=== PATIENT | female | born 1985 | race Caucasian/White ===

== ENCOUNTER 2016-11-29 11:56 | Emergency (ER) | payer OTHER ==
[~2016-11-29] VITALS: Ht 175.3 cm; Wt 66.0 kg
[~2016-11-29 11:56] MED LIST: IBUP800T23 PO; LORTA5 PO
[2016-11-29 11:58] VITALS: BP 152/82; PULSE 80; RESP 20; TEMP 98.4; O2SAT 99
--- NOTE | 2016-11-29 12:07 | PD ---
Physical Exam Date Seen by Provider: November 29, 2016 Time Seen by Provider: 12:06 Narrative Patient reports flu-like symptoms consisting of sore throat, headache, sneezing , coughing for 3 days. Patient's was diagnosed with the flu recently with similar symptoms. Vital signs reviewed. Patient seen in triage, awaiting bed placement. Data Data Last Documented VS Vital Signs Date Time Temp Pulse Resp B/P Pulse Ox O2 Delivery O2 Flow Rate FiO2 11/29/16 11:58 98.4 80 20 152/82 99 Room Air [facility] [place] Supervised Visit with IQRA: Shannon Mckeon November 29, 2016 12:07
[2016-11-29] MEDS ORDERED: ASPI325T PO (12:15)
[2016-11-29] MEDS ORDERED: WELLTAB39 PO (12:15)
--- NOTE | 2016-11-29 12:27 | PD ---
HPI Chief Complaint: Cold / Flu Symptoms Time Seen by Provider: 12:23 Travel History International Travel<30 days: No Contact w/Intl Traveler<30days: No Traveled to known affect area: No History of Present Illness HPI 31-year-old female with history of platelet dysfunction, presents to the ER today because she states that she has had several days' history of nasal congestion, coughing, sore throat, coughing up small amount of blood, small amounts of blood in her nasal discharge, and nausea, vomiting. She states that her has had similar symptoms and had been diagnosed with the flu. She denies any fevers, abdominal pains, chest pains, shortness of breath, or any other symptoms. Modifying Factors: None Associated Signs & Symptoms: Cough, cold symptoms, sore throat, coughing up small amounts of blood, nausea, vomiting Risk Factors: Sick contact, thrombocytopenia PFSH Past Medical History Cancer: Yes Cardiovascular Problems: Yes (HTN) High Cholesterol: Yes Diabetes: No Diminished Hearing: No Endocrine: No Gastrointestinal Disorders: Yes (reflux) Genitourinary: No Hepatitis: No Hiatal Hernia: No Hypertension: Yes Immune Disorder: No Musculoskeletal: No Neurologic: No Psychiatric: No Reproductive: Yes (endometriosis) Respiratory: No Immunizations Current: No Thyroid Disease: No ?: Not LMP: 11/27/2016 : 3 Para: 1 Miscarriage: 1 : 0 Ovarian Cysts: Yes (left ovary) Past Surgical History Abdominal Surgery: Yes (endometriosis) AICD: No Gynecologic Surgery: Yes (cyst removed from left ovary) Joint Replacement: No Pacemaker: No Other Surgery: Yes (bone marrow biopsy) Social History Alcohol Use: No Tobacco Use: No Substance Use: No Allergies-Medications (Allergen,Severity, Reaction): Coded Allergies: Augmentin (Verified Allergy, Severe, Rash, 11/29/16) Reported Meds & Prescriptions Reported Meds & Active Scripts Active Reported Wellbutrin Xl 24 HR (Bupropion HCl) 300 Mg Tab 300 Mg PO DAILY Aspirin 325 Mg Tab 325 Mg PO DAILY Review of Systems Except as stated in HPI: all other systems reviewed are Neg Physical Exam Narrative GENERAL: Young white female patient who is well-developed, awake, alert, 0.23. In mild distress. SKIN: Focused skin assessment warm/dry. HEAD: Atraumatic. Normocephalic. EYES: Pupils equal and round. No scleral icterus. No injection or drainage. ENT: No nasal bleeding or discharge. Mucous membranes pink and moist. No significant pharyngeal erythema or exudates. Tonsillar pillars are symmetrical. NECK: Trachea midline. No JVD. CARDIOVASCULAR: Regular rate and rhythm. No murmur appreciated. RESPIRATORY: No accessory muscle use. Clear to auscultation. Breath sounds equal bilaterally. GASTROINTESTINAL: Abdomen soft, non-tender, nondistended. Hepatic and splenic margins not palpable. MUSCULOSKELETAL: No obvious deformities. No clubbing. No cyanosis. No edema. NEUROLOGICAL: Awake and alert. No obvious cranial nerve deficits. Motor grossly within normal limits. Normal speech. PSYCHIATRIC: Appropriate mood and affect; insight and judgment normal. Data Data Last Documented VS Vital Signs Date Time Temp Pulse Resp B/P Pulse Ox O2 Delivery O2 Flow Rate FiO2 11/29/16 11:58 98.4 80 20 152/82 99 Room Air Orders Influenzae A/B Antigen (11/29/16 12:18) Complete Blood Count With Diff (11/29/16 12:23) Prothrombin Time / Inr (Pt) (11/29/16 12:23) Act Partial Throm Time (Ptt) (11/29/16 12:23) Chest, Single Ap (11/29/16 12:23) Ed Urine Pregnancytest Poc (11/29/16 12:23) Labs Laboratory Tests Test 11/29/16 12:28 White Blood Count 8.8 TH/MM3 Red Blood Count 4.56 MIL/MM3 Hemoglobin 13.0 GM/DL Hematocrit 37.4 % Mean Corpuscular Volume 82.2 FL Mean Corpuscular Hemoglobin 28.6 PG Mean Corpuscular Hemoglobin 34.8 % Concent Red Cell Distribution Width 13.2 % Platelet Count 642 TH/MM3 Mean Platelet Volume 8.3 FL Neutrophils (%) (Auto) 73.3 % Lymphocytes (%) (Auto) 18.9 % Monocytes (%) (Auto) 6.6 % Eosinophils (%) (Auto) 0.7 % Basophils (%) (Auto) 0.5 % Neutrophils # (Auto) 6.4 TH/MM3 Lymphocytes # (Auto) 1.7 TH/MM3 Monocytes # (Auto) 0.6 TH/MM3 Eosinophils # (Auto) 0.1 TH/MM3 Basophils # (Auto) 0.0 TH/MM3 CBC Comment DIFF FINAL Differential Comment Prothrombin Time 10.3 SEC Prothromb Time International 0.9 RATIO Ratio Activated Partial 28.5 SEC Thromboplast Time MDM Medical Decision Making Medical Screen Exam Complete: Yes Emergency Medical Condition: Yes Medical Record Reviewed: Yes Interpretation(s) Last 24 hours Impressions Chest X-Ray 11/29/16 1223 Signed Impressions: Service Date/Time: Tuesday, November 29, 2016 12:37 - CONCLUSION: No acute disease. There is no evidence of pneumonia. Gama Mckeon MD Laboratory Tests Test 11/29/16 12:28 Platelet Count 642 TH/MM3 (150-450) Neutrophils (%) (Auto) 73.3 % (16.0-70.0) Differential Diagnosis Cough, cold symptoms, small amounts of blood in sputum and nasal discharge worsening thrombocytopenia versus influenza versus pneumonia Narrative Course Influenza test is negative. Chest x-ray did not show any signs of acute pulmonary processes. Lab work shows an elevated platelet count. Patient has no active bleeding currently. At this point, symptoms are more indicative of viral syndrome. My plan would be to release the patient would follow-up to primary care physician. Return for new issues as needed. The plan has been discussed with the patient and she states understanding. Diagnosis Primary Impression: Viral syndrome Med/Other Pt SpecificInfo: Prescription(s) given Disposition: 01 DISCHARGE HOME Condition: Stable Em Morris MD November 29, 2016 12:27 Em Morris MD November 29, 2016 12:27
[2016-11-29 12:44] LABS: AUTOMATED NEUTROPHIL # 6.4 TH/MM3 (1.8-7.7); BASOPHIL % 0.5 % (0.0-2.0); EOSINOPHIL # 0.1 TH/MM3 (0-0.4); EOSINOPHIL % 0.7 % (0.0-4.0); HEMATOCRIT 37.4 % (35.0-46.0); HEMO FLAGS DIFF FINAL; LYMPH % 18.9 % (9.0-44.0); LYMPHOCYTE # 1.7 TH/MM3 (1.0-4.8); MEAN CELL VOLUME 82.2 FL (80.0-100.0); MEAN CORPUSCULAR HEMOGLOBIN 28.6 PG (27.0-34.0); MEAN CORPUSCULAR HGB CONC 34.8 % (32.0-36.0); MONO % 6.6 % (0.0-8.0); NEUT % 73.3 % (16.0-70.0); PLATELET COUNT 642 TH/MM3 (150-450); RED BLOOD COUNT 4.56 MIL/MM3 (4.00-5.30); RED CELL DISTRIBUTION WIDTH 13.2 % (11.6-17.2); WHITE BLOOD COUNT 8.8 TH/MM3 (4.0-11.0)
[2016-11-29 12:53] LABS: APTT (PATIENT) 28.5 SEC (24.3-30.1); INTERNATIONAL NORMALIZED RATIO 0.9 RATIO; PROTHROMBIN TIME - PATIENT 10.3 SEC (9.8-11.6)
--- NOTE | 2016-11-29 12:55 | RADRPT ---
EXAM DATE/TIME: 11/29/2016 12:37 [facility] COMPARISON: No previous studies available for comparison. INDICATIONS : Shortness of breath, cough, and congestion. MEDICAL HISTORY : Hypertension. Hypercholesterolemia. GERD. SURGICAL HISTORY : None. ENCOUNTER: Initial ACUITY: 3 days PAIN SCORE: 0/10 LOCATION: Bilateral chest FINDINGS: A single view of the chest demonstrates the lungs to be symmetrically aerated without evidence of mas s, infiltrate or effusion. The cardiomediastinal contours are unremarkable. Osseous structures are intact. CONCLUSION: No acute disease. There is no evidence of pneumonia. Gama Mckeon MD on November 29, 2016 at 12:52 Board Certified Radiologist. This report was verified electronically.
== END 2016-11-29 13:30 | disposition home or self-care (01) ==
LOC: NEPD 11:56
DX: B34.9 Viral infection, unspecified (principal); I10 Essential (primary) hypertension; R06.02 Shortness of breath
CPT/HCPCS: 71010; 84703; 85025; 85610; 85730; 87804; 99284

== ENCOUNTER 2017-05-09 08:58 | Emergency (ER) | payer OTHER ==
[~2017-05-09] VITALS: Ht 165.1 cm; Wt 65.0 kg
[~2017-05-09 08:58] MED LIST changes: +ASPI325T PO; -IBUP800T23 PO; -LORTA5 PO; +WELLTAB39 PO
[2017-05-09 09:00] VITALS: BP 128/74; PULSE 78; RESP 16; TEMP 98.2; O2SAT 100
[2017-05-09 09:01] VITALS: BP 163/87; PULSE 84; RESP 15; TEMP 97.8; O2SAT 98
[2017-05-09] MEDS ORDERED: diphenhydrAMINE HCL 50 MG/ML VIAL IV PUSH ONE (09:30)
[2017-05-09] MEDS ORDERED: METOCLOPRAMIDE HCL 10 MG/2 ML VIAL IV PUSH ONE (09:30)
[2017-05-09] MEDS ORDERED: SODIUM CHLORIDE 0.9% FLUSH 10 ML FLUSH IV FLUSH PRN (09:30)
[2017-05-09 09:44] VITALS: O2SAT 100
[2017-05-09 09:48] LABS: AUTOMATED NEUTROPHIL # 10.1 TH/MM3 (1.8-7.7); BASOPHIL % 0.2 % (0.0-2.0); EOSINOPHIL # 0.1 TH/MM3 (0-0.4); EOSINOPHIL % 0.9 % (0.0-4.0); HEMATOCRIT 36.1 % (35.0-46.0); HEMO FLAGS DIFF FINAL; LYMPH % 11.1 % (9.0-44.0); LYMPHOCYTE # 1.3 TH/MM3 (1.0-4.8); MEAN CELL VOLUME 84.4 FL (80.0-100.0); MEAN CORPUSCULAR HEMOGLOBIN 28.2 PG (27.0-34.0); MEAN CORPUSCULAR HGB CONC 33.5 % (32.0-36.0); MONO % 3.1 % (0.0-8.0); NEUT % 84.7 % (16.0-70.0); PLATELET COUNT 481 TH/MM3 (150-450); RED BLOOD COUNT 4.28 MIL/MM3 (4.00-5.30); RED CELL DISTRIBUTION WIDTH 13.3 % (11.6-17.2); WHITE BLOOD COUNT 11.9 TH/MM3 (4.0-11.0)
[2017-05-09 09:49] LABS: BLOOD, URINE NEG (NEG); COMMENT (UR) CULT NOT INDICATED; CULTURE IF INDICATED CULT NOT INDICATED; GLUCOSE,URINE NEG (NEG); KETONE, URINE NEG (NEG); MUCUS URINE FEW /lpf (OCC); NITRITE,URINE NEG (NEG); SQUAMOUS EPITHELIAL CELL URINE <1 /hpf (0-5); URINE COLOR YELLOW (YELLW/STRAW)
[2017-05-09 10:08] LABS: ANION GAP 7 MEQ/L (5-15); AST (GOT) 13 U/L (15-37); BICARBONATE 24.2 MEQ/L (21.0-32.0); BLOOD UREA NITROGEN 7 MG/DL (7-18); CHLORIDE 105 MEQ/L (98-107); GLOMERULAR FILTRATION RATE 135 ML/MIN (>89); SODIUM (NA) 136 MEQ/L (136-145)
[2017-05-09 10:09] LABS: ALT (GPT) 21 U/L (10-53)
[2017-05-09 10:26] LABS: ALKALINE PHOSPHATASE 60 U/L (45-117); BETA HCG QUANT 65344 MIU/ML (0-5); TOTAL BILIRUBIN ADULT 0.3 MG/DL (0.2-1.0)
[2017-05-09] MEDS ORDERED: REGL10TA5 PO (10:33)
--- NOTE | 2017-05-09 10:33 | PD ---
HPI Chief Complaint: Related Problem Time Seen by Provider: 09:14 Travel History International Travel<30 days: No Contact w/Intl Traveler<30days: No Traveled to known affect area: No History of Present Illness HPI 31-year-old female 5 para one noted to be 13 weeks complains of headache for 1 day generalized frontal scalp and his location. Tylenol has not been helpful. She also complains of generalized and suprapubic abdominal pain. She has had a normal ultrasound with a sub arc operator in [place]. It was 2 weeks ago. No abnormal vaginal discharge or bleed. Decreased appetite reported. No fever. She also reports vomiting this morning. Intermittent nausea reported. PFSH Past Medical History Cancer: Yes Cardiovascular Problems: Yes (HTN) High Cholesterol: Yes Diabetes: No Diminished Hearing: No Endocrine: No Gastrointestinal Disorders: Yes (reflux) Genitourinary: No Hepatitis: No Hiatal Hernia: No Hypertension: Yes Immune Disorder: No Musculoskeletal: No Neurologic: No Psychiatric: No Reproductive: Yes (endometriosis) Respiratory: No Immunizations Current: No Thyroid Disease: No ?: : 3 Para: 1 Miscarriage: 1 : 0 Ovarian Cysts: Yes (left ovary) Past Surgical History Abdominal Surgery: Yes (endometriosis) AICD: No Gynecologic Surgery: Yes (cyst removed from left ovary) Joint Replacement: No Pacemaker: No Other Surgery: Yes (bone marrow biopsy) Social History Alcohol Use: No Tobacco Use: No Substance Use: No Allergies-Medications (Allergen,Severity, Reaction): Coded Allergies: amoxicillin (Unverified Allergy, Severe, Rash, 03/10/17) clavulanic acid (Unverified Allergy, Severe, Rash, 03/10/17) Reported Meds & Prescriptions Reported Meds & Active Scripts Active Reglan (Metoclopramide HCl) 10 Mg Tab 10 Mg PO TID PRN Reported Wellbutrin Xl 24 HR (Bupropion HCl) 300 Mg Tab 300 Mg PO DAILY Aspirin 325 Mg Tab 325 Mg PO DAILY Review of Systems Except as stated in HPI: all other systems reviewed are Neg General / Constitutional: No: Fever Physical Exam Narrative GENERAL: 31-year-old female acute distress SKIN: Warm and dry. HEAD: Atraumatic. Normocephalic. EYES: Pupils equal and round. No scleral icterus. No injection or drainage. ENT: No nasal bleeding or discharge. Mucous membranes pink and moist. NECK: Trachea midline. No JVD. CARDIOVASCULAR: Regular rate and rhythm. RESPIRATORY: No accessory muscle use. Clear to auscultation. Breath sounds equal bilaterally. GASTROINTESTINAL: Soft. No focused tenderness. No flank tenderness. MUSCULOSKELETAL: Extremities without clubbing, cyanosis, or edema. No obvious deformities. NEUROLOGICAL: Awake and alert. No obvious cranial nerve deficits. Motor grossly within normal limits. Five out of 5 muscle strength in the arms and legs. Normal speech. PSYCHIATRIC: Appropriate mood and affect; insight and judgment normal. Data Data Last Documented VS Vital Signs Date Time Temp Pulse Resp B/P (MAP) Pulse Ox O2 Delivery O2 Flow Rate FiO2 05/09/17 09:44 100 Room Air 05/09/17 09:01 97.8 84 15 Vital signs reviewed blood pressure is 163/87 Orders Orders Beta Hcg (Quant/Titer) (05/09/17 09:22) Complete Blood Count With Diff (05/09/17 09:22) Comprehensive Metabolic Panel (05/09/17:22) Lipase (05/09/17:22) Urinalysis - C+S If Indicated (05/09/17 09:22) Iv Access Insert/Monitor (05/09/17 09:22) Ecg Monitoring (05/09/17:22) Oximetry (05/09/17 09:22) Sodium Chloride 0.9% Flush (Ns Flush) (05/09/17 09:30) Metoclopramide Inj (Reglan Inj) (05/09/17 09:30) Diphenhydramine Inj (Benadryl Inj) (05/09/17 09:30) Ed Discharge Order (05/09/17 10:33) Labs Laboratory Tests Test 05/09/17 09:40 White Blood Count 11.9 TH/MM3 Red Blood Count 4.28 MIL/MM3 Hemoglobin 12.1 GM/DL Hematocrit 36.1 % Mean Corpuscular Volume 84.4 FL Mean Corpuscular Hemoglobin 28.2 PG Mean Corpuscular Hemoglobin Concent 33.5 % Red Cell Distribution Width 13.3 % Platelet Count 481 TH/MM3 Mean Platelet Volume 8.2 FL Neutrophils (%) (Auto) 84.7 % Lymphocytes (%) (Auto) 11.1 % Monocytes (%) (Auto) 3.1 % Eosinophils (%) (Auto) 0.9 % Basophils (%) (Auto) 0.2 % Neutrophils # (Auto) 10.1 TH/MM3 Lymphocytes # (Auto) 1.3 TH/MM3 Monocytes # (Auto) 0.4 TH/MM3 Eosinophils # (Auto) 0.1 TH/MM3 Basophils # (Auto) 0.0 TH/MM3 CBC Comment DIFF FINAL Differential Comment Urine Color YELLOW Urine Turbidity CLEAR Urine pH 6.0 Urine Specific [place] 1.018 Urine Protein NEG mg/dL Urine Glucose (UA) NEG mg/dL Urine Ketones NEG mg/dL Urine Occult Blood NEG Urine Nitrite NEG Urine Bilirubin NEG Urine Urobilinogen LESS THAN 2.0 MG/DL Urine Leukocyte Esterase NEG Urine RBC LESS THAN 1 /hpf Urine WBC 1 /hpf Urine Squamous Epithelial Cells <1 /hpf Urine Mucus FEW /lpf Microscopic Urinalysis Comment CULT NOT INDICATED Blood Urea Nitrogen 7 MG/DL Creatinine 0.53 MG/DL Random Glucose 85 MG/DL Total Protein 6.7 GM/DL Albumin 3.0 GM/DL Calcium Level 9.2 MG/DL Alkaline Phosphatase 60 U/L Aspartate Amino Transf (AST/SGOT) 13 U/L Alanine Aminotransferase (ALT/SGPT) 21 U/L Total Bilirubin 0.3 MG/DL Sodium Level 136 MEQ/L Potassium Level 4.0 MEQ/L Chloride Level 105 MEQ/L Carbon Dioxide Level 24.2 MEQ/L Anion Gap 7 MEQ/L Estimat Glomerular Filtration Rate 135 ML/MIN Lipase 139 U/L Human Chorionic Gonadotropin, Quant 22550 MIU/ML MDM Medical Decision Making Medical Screen Exam Complete: Yes Emergency Medical Condition: Yes Medical Record Reviewed: Yes Differential Diagnosis Migraine, UTI, intrauterine , round ligament pain, electronimbalance, hepatobiliary disease, pancreatitis, venous sinus thrombosis Narrative Course CBC & BMP Diagram 05/09/17 09:40 Total Protein 6.7, Albumin 3.0 L, Calcium Level 9.2, Alkaline Phosphatase 60, Aspartate Amino Transf (AST/SGOT) 13 L, Alanine Aminotransferase (ALT/SGPT) 21, Total Bilirubin 0.3 HCG 65,344 UA: no UTI The patient is resting comfortably and feels better, is alert and in no distress. The patients results and examination findings were discussed. The repeat examination is unremarkable and benign. The history, exam, diagnostic testing, and current condition do not suggest any significant pathology to warrant further testing, continued ED treatment, admission, or surgical evaluation at this point. The vital signs have been stable. The patient does not have uncontrollable pain, intractable vomiting, or other significant symptoms. The patient's condition is stable and appropriate for discharge. The patient will pursue further outpatient evaluation with a primary care physician or other designated or consulting physician as indicated in the discharge instructions. The patient expressed understanding and was agreeable with this plan. Diagnosis Primary Impression: Cephalgia Qualified Codes: R51 - Headache Additional Impressions: Abdominal pain Qualified Codes: R10.9 - Unspecified abdominal pain Intrauterine Referrals: [facility] 2 days Additional Instructions: You have a choice when it comes to health care, and we are glad that you chose [facility]. Hopefully, we have met your expectations on today's visit. You are welcome to return to [facility] at any time, as we are committed to meeting the health care needs of our community. Med/Other Pt SpecificInfo: Prescription(s) given Scripts Metoclopramide (Reglan) 10 Mg Tab 10 MG PO TID Y for NAUSEA OR VOMITING, #10 TAB 0 Refills Prov: Josh Swartz MD 05/09/17 Disposition: DISCHARGE HOME Condition: Stable Josh Swartz MD May 09, 2017 10:33
== END 2017-05-09 11:04 | disposition home or self-care (01) ==
LOC: NEPD 08:58
DX: O26.91 Pregnancy related conditions, unspecified, first trimester (principal); Z3A.13 13 weeks gestation of pregnancy; O16.1 Unspecified maternal hypertension, first trimester; K21.9 Gastro-esophageal reflux disease without esophagitis; E78.5 Hyperlipidemia, unspecified; O34.81 Maternal care for other abnormalities of pelvic organs, first trimester; N83.202 Unspecified ovarian cyst, left side
CPT/HCPCS: 80053; 81001; 83690; 84702; 85025; 96374; 96375; 99284; J1200; J2765

== ENCOUNTER → 2017-06-24 | Outpatient (CLI) | payer OTHER ==
[~2017-06-24] MED LIST changes: +ASPI-183 PO; -ASPI325T PO; +REGL10TA5 PO
== END ==
LOC: HPND 08:58
DX: O99.112 Other diseases of the blood and blood-forming organs and certain disorders involving the immune mechanism complicating pregnancy, second trimester (principal); D69.6 Thrombocytopenia, unspecified
CPT/HCPCS: 76811

== ENCOUNTER 2017-07-08 17:50 | Emergency (ER) | payer OTHER ==
--- NOTE | 2017-07-08 18:50 | PD ---
HPI Chief Complaint Lower abdominal pain, back pain Travel History International Travel<30 Days: No Contact w/Intl Traveler<30Days: No Known Affected Area: No History of Present Illness HPI 31-year-old 031, IUP at 20.3 care complicated by hypertension on labetalol daily but she doesn't recall the dose The patient presents complaining of the headache that she has had all day today. She reports that she has had headache off and on over the past 3 days. She reports that will occasionally improve with Tylenol but then returns. There are no other aggravating or alleviating factors. She also reports intermittent abdominal pain today that his occurred 3-4 times, lasting for 5-10 minutes each episode, and is sharp and stabbing in nature. She reports the pain as 7 out of 10. There are no aggravating or relieving factors, no attempted treatments. She denies any nausea, vomiting, fever, chills. She is tolerating a regular diet. She denies any leaking of fluid or vaginal bleeding. She reports good movement. She denies any uterine cramping. Weeks Gestation: 20 Para: 1 : 5 History Past Medical History Narrative Medical HTN Obstetric History Obstetric History 031 1 SAB 3 Past Surgical History Surgical History: No Previous Surgery Family History Narrative Family History DM, HTN, CAD, ID Social History Alcohol Use: No Tobacco Use: No Substance Abuse: No Allergies-Medications (Allergen,Severity, Reaction): Coded Allergies: amoxicillin (Unverified Allergy, Severe, Rash, 03/10/17) clavulanic acid (Unverified Allergy, Severe, Rash, 03/10/17) Home Meds Active Scripts Metoclopramide (Reglan) 10 Mg Tab, 10 MG PO TID Y for NAUSEA OR VOMITING, #10 TAB 0 Refills Prov:Josh Swartz MD 05/09/17 Reported Medications Bupropion HCl ER 24 HR (Wellbutrin Xl 24 HR) 300 Mg Tab, 300 MG PO DAILY for Control Depression, TAB 0 Refills 11/29/16 Aspirin (Aspirin) 325 Mg Tab, 325 MG PO DAILY, #30 TAB 0 Refills 11/29/16 Review of Systems Except as stated in HPI: all other systems reviewed are Neg HENT: Headaches Physical Exam Narrative GENERAL: Well-nourished, well-developed patient. SKIN: Warm and dry. HEAD: Normocephalic and atraumatic. EYES: No scleral icterus. No injection or drainage. ENT: No nasal drainage noted. Mucous membranes pink. Airway patent. NECK: Supple, trachea midline. No JVD. CARDIOVASCULAR: Regular rate and rhythm without murmurs, gallops, or rubs. RESPIRATORY: Breath sounds equal bilaterally. No accessory muscle use. BREASTS: Bilateral exam showed no masses , no retractions, no nipple discharge. ABDOMEN/GI: Abdomen soft, non-tender, bowel sounds present, no rebound, no guarding Gravid GENITOURINARY: External Genitalia: intact and normal in appearance BUS glands: [-] Cervix: [-] Dilatation: [-] Effacement: [-] Station: [-] Presentation: [-] Membranes: [intact or ruptured] Uterine Contractions: [-] FHT's: Doppler heart tones in the 160s EXTREMITIES: No cyanosis or edema. BACK: Nontender without obvious deformity. No CVA tenderness. No spinal or paraspinal tenderness. Mild lower lumbar musculoskeletal tenderness with palpation NEUROLOGICAL: Awake and alert. Motor and sensory grossly within normal limits. Five out of 5 muscle strength in all muscle groups. Normal speech. Psychiatric: Grossly normal memory and affect Musculoskeletal: Grossly normal range of motion, gait, muscle strength MDM Plan Assessment/plan: 1. IUP at 20.3 2. Abdominal pain: No evidence of labor with cervix that is closed/ thick/high and posterior. No contractions noted on tocometry. The patient has a benign abdominal exam. She declines transferred to the ED. The patient was instructed we would transfer her to the ED for further evaluation due to 7 out of 10 pain although the patient appears to be resting comfortably in bed. The patient refused to be transferred to the ED. 3. Chronic hypertension: Patient brought she is not been taking her medication but has normal blood pressures today. Advised her to follow up with her primary obstetrical provider 4. Headache : The patient is normal blood pressures, she was given Fioricet 2 and reports that her headache resolved 5. Follow-up with primary OB in 2-3 days or sooner if needed patient given information on local providers Diagnosis Diagnosis: Primary Impression: 20 weeks gestation of Additional Impressions: Headache False labor Disposition: 01 DISCHARGE HOME Condition: Good (Transfer to ED for further evaluation of abdominal pain. patient refused transfer.) Mona Shepherd MD Jul 08, 2017 18:50
[2017-07-08] MEDS ORDERED: ACETAMINOPHEN 325 MG TAB PO ONE (19:00)
[2017-07-08 19:05] LABS: BACTERIA, URINE RARE /hpf; BLOOD, URINE NEG (NEG); COMMENT (UR) CULT NOT INDICATED; CULTURE IF INDICATED CULT NOT INDICATED; GLUCOSE,URINE NEG (NEG); KETONE, URINE NEG (NEG); NITRITE,URINE NEG (NEG); PH, URINE 5.5 (5.0-8.5); SQUAMOUS EPITHELIAL CELL URINE <1 /hpf (0-5); URINE COLOR LIGHT-YELLOW (YELLW/STRAW)
[2017-07-08] MEDS ORDERED: ACETAMIN 325 MG/BUTALBITAL 50 MG/CAFFEINE 40 MG TAB PO ONE (19:30)
[2017-07-08 20:57] VITALS: RESP 18
== END 2017-07-08 21:22 | disposition home or self-care (01) ==
LOC: HOBED 17:50
DX: O47.9 False labor, unspecified (principal); O16.2 Unspecified maternal hypertension, second trimester; R51 Headache; R10.9 Unspecified abdominal pain; Z3A.20 20 weeks gestation of pregnancy; Z79.82 Long term (current) use of aspirin; Z79.899 Other long term (current) drug therapy; Z88.0 Allergy status to penicillin; Z88.8 Allergy status to other drugs, medicaments and biological substances
CPT/HCPCS: 81001; 99284

== ENCOUNTER → 2017-07-31 | Outpatient (CLI) | payer OTHER | LOC: HPND 09:07 | DX: O35.8XX0 Maternal care for other (suspected) fetal abnormality and damage, not applicable or unspecified (principal); O10.012 Pre-existing essential hypertension complicating pregnancy, second trimester; O09.212 Supervision of pregnancy with history of pre-term labor, second trimester | CPT/HCPCS: 76816 ==

== ENCOUNTER 2017-08-25 17:09 | Emergency (ER) | payer OTHER ==
[~2017-08-25] VITALS: Ht 165.1 cm; Wt 73.6 kg
[2017-08-25 17:10] VITALS: BP 137/72; PULSE 92; RESP 18; TEMP 98.3; O2SAT 100
[2017-08-25] MEDS ORDERED: LABE100T2 PO (17:49)
[2017-08-25] MEDS ORDERED: SODIUM CHLORIDE 0.9% FLUSH 10 ML FLUSH IVF PRN (18:15)
--- NOTE | 2017-08-25 18:15 | PD ---
HPI Chief Complaint: Edema Time Seen by Provider: 17:46 Travel History International Travel<30 days: No Contact w/Intl Traveler<30days: No Traveled to known affect area: No History of Present Illness HPI 31-year-old A3 approximately 27 weeks presents to the emergency room for right lower extremity pain for the past 3 days. Pain is worse at night. States it feels like a charleyhorse. She has no denies pain throughout the day. States yesterday when she woke up, her right foot was swollen as well. She takes 325 mg aspirin daily for blood cancer but she does not remember the name of the cancer. Her diesel powerplant mechanic is Dr. Vergara. She called their office today and they recommended she come to the emergency room for evaluation. Patient reports associated abdominal pain worse when she pushes on her abdomen. She denies any vaginal bleeding or discharge. PFSH Past Medical History Cancer: Yes Cardiovascular Problems: Yes (HTN) High Cholesterol: Yes Diabetes: No Diminished Hearing: No Endocrine: No Gastrointestinal Disorders: Yes (reflux) Genitourinary: No Hepatitis: No Hiatal Hernia: No Hypertension: Yes Immune Disorder: No Musculoskeletal: No Neurologic: No Psychiatric: No Reproductive: Yes (endometriosis) Respiratory: No Immunizations Current: No Thyroid Disease: No ?: : 3 Para: 1 Miscarriage: 1 : 0 Ovarian Cysts: Yes (left ovary) Past Surgical History Abdominal Surgery: Yes (endometriosis) AICD: No Gynecologic Surgery: Yes (cyst removed from left ovary) Joint Replacement: No Pacemaker: No Other Surgery: Yes (bone marrow biopsy) Social History Alcohol Use: No Tobacco Use: No Substance Use: No Allergies-Medications (Allergen,Severity, Reaction): Coded Allergies: amoxicillin (Unverified Allergy, Severe, Rash, 08/25/17) clavulanic acid (Unverified Allergy, Severe, Rash, 08/25/17) Reported Meds & Prescriptions Reported Meds & Active Scripts Active Reported Labetalol (Labetalol HCl) 100 Mg Tab 100 Mg PO BID Aspirin 325 Mg Tab 325 Mg PO DAILY Review of Systems Except as stated in HPI: all other systems reviewed are Neg Physical Exam Narrative GENERAL: Well-nourished, well-developed female in no acute distress. Afebrile. Ambulatory. SKIN: Focused skin assessment warm/dry. HEAD: Normocephalic. EYES: No scleral icterus. No injection or drainage. NECK: Supple, trachea midline. No JVD or lymphadenopathy. CARDIOVASCULAR: Regular rate and rhythm without murmurs, gallops, or rubs. RESPIRATORY: Breath sounds equal bilaterally. No accessory muscle use. GASTROINTESTINAL: Abdomen soft, nondistended. Mild to moderate tenderness to palpation of the lower abdomen. MUSCULOSKELETAL: No cyanosis, or edema. 2+ dorsalis pedis pulse. Full range motion of bilateral lower extremity. There is tenderness to palpation over the right calf. Negative Roxy's sign. Data Data Last Documented VS Vital Signs Date Time Temp Pulse Resp B/P (MAP) Pulse Ox O2 Delivery O2 Flow Rate FiO2 08/25/17 19:42 96 2.00 08/25/17 19:42 Room Air 08/25/17 17:10 98.3 92 18 Orders Orders Complete Blood Count With Diff (08/25/17 18:05) Comprehensive Metabolic Panel (08/25/17 18:05) Act Partial Throm Time (Ptt) (08/25/17 18:05) Prothrombin Time / Inr (Pt) (08/25/17 18:05) Iv Access Insert/Monitor (08/25/17 18:05) Electrocardiogram (08/25/17 18:05) Ecg Monitoring (08/25/17 18:05) Oximetry (08/25/17 18:05) Oxygen Administration (08/25/17 18:05) Us Leg Venous Doppler (08/25/17 18:05) Sodium Chloride 0.9% Flush (Ns Flush) (08/25/17 18:15) Urinalysis - C+S If Indicated (08/25/17 20:02) Labs Laboratory Tests Test 08/25/17 18:00 White Blood Count 16.6 TH/MM3 Red Blood Count 4.17 MIL/MM3 Hemoglobin 12.1 GM/DL Hematocrit 35.6 % Mean Corpuscular Volume 85.5 FL Mean Corpuscular Hemoglobin 29.1 PG Mean Corpuscular Hemoglobin Concent 34.1 % Red Cell Distribution Width 13.9 % Platelet Count 506 TH/MM3 Mean Platelet Volume 7.9 FL Neutrophils (%) (Auto) 75.8 % Lymphocytes (%) (Auto) 15.1 % Monocytes (%) (Auto) 4.7 % Eosinophils (%) (Auto) 3.9 % Basophils (%) (Auto) 0.5 % Neutrophils # (Auto) 12.5 TH/MM3 Lymphocytes # (Auto) 2.5 TH/MM3 Monocytes # (Auto) 0.8 TH/MM3 Eosinophils # (Auto) 0.6 TH/MM3 Basophils # (Auto) 0.1 TH/MM3 CBC Comment DIFF FINAL Differential Comment Prothrombin Time 9.4 SEC Prothromb Time International Ratio 0.9 RATIO Activated Partial Thromboplast Time 24.6 SEC Blood Urea Nitrogen 9 MG/DL Creatinine 0.50 MG/DL Random Glucose 59 MG/DL Total Protein 7.1 GM/DL Albumin 2.7 GM/DL Calcium Level 9.0 MG/DL Alkaline Phosphatase 161 U/L Aspartate Amino Transf (AST/SGOT) 14 U/L Alanine Aminotransferase (ALT/SGPT) 19 U/L Total Bilirubin 0.2 MG/DL Sodium Level 136 MEQ/L Potassium Level 3.8 MEQ/L Chloride Level 104 MEQ/L Carbon Dioxide Level 26.2 MEQ/L Anion Gap 6 MEQ/L Estimat Glomerular Filtration Rate 144 ML/MIN MDM Medical Decision Making Medical Screen Exam Complete: Yes Emergency Medical Condition: Yes Medical Record Reviewed: Yes Differential Diagnosis DVT, electrolyte abnormality, muscle cramping, hellp syndrome Narrative Course 31-year-old A3 approximately 27 week female presents to the emergency room for evaluation of right lower extremity swelling and pain that started 3 days ago. Patient denies trauma or injury. States pain is worse in the middle of the night. Improves throughout the day. States she had associated right foot swelling yesterday morning. She called her diesel powerplant mechanic, Dr. Vergara, who recommended she come to the emergency room. Patient takes aspirin daily for blood cancer that she does not remember the name of. Physical exam reveals no obvious or pitting edema. RLE is neurovascularly intact with 2+ dorsalis pedis pulse. Negative Homans sign. There is some tenderness to palpation of the calf. Ultrasound is negative. CBC shows mild leukocytosis and thrombocytosis. CMP is unremarkable. Patient also reports lower abdominal pain that started today. She denies any urinary symptoms. Abdomen is soft with mild tenderness to palpation over the pelvic region. Patient denies any vaginal discharge or bleeding. She was sent from the emergency room to OB ED for lower abdominal pain during . Diagnosis Primary Impression: Right leg pain Referrals: Advertising Assistant Additional Instructions: Rest and drink plenty of fluids. Take Tylenol as directed, as needed for pain. Apply ice to the affected area for 20 minutes at a time, as needed for pain and swelling. Follow-up with a primary care physician. Return to the emergency room for worsening symptoms. Med/Other Pt SpecificInfo: Prescription(s) given Disposition: 01 DISCHARGE HOME Condition: Stable Rose Waters Aug 25, 2017 18:15
[2017-08-25 18:22] LABS: AUTOMATED NEUTROPHIL # 12.5 TH/MM3 (1.8-7.7); BASOPHIL # 0.1 TH/MM3 (0-0.2); BASOPHIL % 0.5 % (0.0-2.0); EOSINOPHIL # 0.6 TH/MM3 (0-0.4); EOSINOPHIL % 3.9 % (0.0-4.0); HEMATOCRIT 35.6 % (35.0-46.0); HEMOGLOBIN 12.1 GM/DL (11.6-15.3); LYMPH % 15.1 % (9.0-44.0); LYMPHOCYTE # 2.5 TH/MM3 (1.0-4.8); MEAN CELL VOLUME 85.5 FL (80.0-100.0); MEAN CORPUSCULAR HEMOGLOBIN 29.1 PG (27.0-34.0); MEAN CORPUSCULAR HGB CONC 34.1 % (32.0-36.0); MEAN PLATELET VOLUME 7.9 FL (7.0-11.0); MONO % 4.7 % (0.0-8.0); MONOCYTE # 0.8 TH/MM3 (0-0.9); NEUT % 75.8 % (16.0-70.0); PLATELET COUNT 506 TH/MM3 (150-450); RED BLOOD COUNT 4.17 MIL/MM3 (4.00-5.30); RED CELL DISTRIBUTION WIDTH 13.9 % (11.6-17.2); WHITE BLOOD COUNT 16.6 TH/MM3 (4.0-11.0)
[2017-08-25 18:38] LABS: INTERNATIONAL NORMALIZED RATIO 0.9 RATIO; PROTHROMBIN TIME - PATIENT 9.4 SEC (9.8-11.6)
[2017-08-25 18:41] LABS: ALBUMIN 2.7 GM/DL (3.4-5.0); AST (GOT) 14 U/L (15-37); BICARBONATE 26.2 MEQ/L (21.0-32.0); BLOOD UREA NITROGEN 9 MG/DL (7-18); CHLORIDE 104 MEQ/L (98-107); GLOMERULAR FILTRATION RATE 144 ML/MIN (>89); GLUCOSE,RANDOM 59 MG/DL (74-106); SODIUM (NA) 136 MEQ/L (136-145)
[2017-08-25 18:44] LABS: ALKALINE PHOSPHATASE 161 U/L (45-117); ALT (GPT) 19 U/L (10-53); TOTAL BILIRUBIN ADULT 0.2 MG/DL (0.2-1.0); TOTAL PROTEIN 7.1 GM/DL (6.4-8.2)
--- NOTE | 2017-08-25 19:32 | RADRPT ---
EXAM DATE/TIME: 08/25/2017 19:10 [facility] COMPARISON: No previous studies available for comparison. INDICATIONS : Right leg pain. MEDICAL HISTORY : Hypercholesterolemia. Hypertension. Gastroesophageal reflux disease. Ovarian cysts. Endometriosis. . . SURGICAL HISTORY : Bone marrow biopsy. Ovarian cyst removal. ENCOUNTER: Initial ACUITY: 3 days PAIN SCORE: 4/10 LOCATION: Right leg. TECHNIQUE: Venous ultrasound of the leg was performed from the inguinal ligament to the proximal calf. Real-beth e, color Doppler and spectral tracing, compression and augmentation techniques were used. FINDINGS: There is normal compressibility of the deep venous system from the inguinal region to the proximal ca lf. No echogenic clot is seen in the lumen of the common femoral, femoral, popliteal, and posterior tibial veins. There is a normal response of the venous system to proximal and distal augmentation an d respiration. CONCLUSION: No evidence of deep venous thrombosis within the right lower extremity. Chuck Goldsmith MD on August 25, 2017 at 19:28 Board Certified Radiologist. This report was verified electronically.
[2017-08-25 19:42] VITALS: O2SAT 98
--- NOTE | 2017-08-25 20:10 | PD ---
Physical Exam Narrative General: The patient is a well-developed well-nourished female in no acute distress. Head and Neck exam: Head is normocephalic atraumatic. Eyes: EOMI, pupils are equal round and reactive to light. Nose: Midline septum with pink mucous membranes Mouth: Dentition unremarkable. Moist mucus membranes. Posterior oropharynx is not erythematous. No tonsillar hypertrophy. Uvula midline. Airway patent. Neck: No palpable lymphadenopathy. No nuchal rigidity. No thyromegaly. Cardiovascular: Regular rate and rhythm without murmurs, gallops, or rubs. Lungs: Clear to auscultation bilaterally. No wheezes, rhonchi, or rales. Abdomen: Soft, with reported tenderness on palpation along the suprapubic area. The patient has palpable uterine enlargement with a fundus that is well above the umbilicus. No palpable contractions. No guarding, rebound, or rigidity. Normal bowel sounds are audible. Extremities: No clubbing, cyanosis, or edema. 2+ pulses in all 4 extremities. The patient reports having right-sided calf tenderness on palpation with a positive Homans sign. No palpable cords. No erythema. Back: No costovertebral angle tenderness to palpation. Neurologic Exam: Grossly nonfocal. Skin Exam: No rash noted. Intact skin that is warm and dry. Data Data Last Documented VS Vital Signs Date Time Temp Pulse Resp B/P (MAP) Pulse Ox O2 Delivery O2 Flow Rate FiO2 08/25/17 19:42 96 2.00 08/25/17 19:42 Room Air 08/25/17 17:10 98.3 92 18 Orders Orders Complete Blood Count With Diff (08/25/17 18:05) Comprehensive Metabolic Panel (08/25/17 18:05) Act Partial Throm Time (Ptt) (08/25/17 18:05) Prothrombin Time / Inr (Pt) (08/25/17 18:05) Iv Access Insert/Monitor (08/25/17 18:05) Electrocardiogram (08/25/17 18:05) Ecg Monitoring (08/25/17 18:05) Oximetry (08/25/17 18:05) Oxygen Administration (08/25/17 18:05) Us Leg Venous Doppler (08/25/17 18:05) Sodium Chloride 0.9% Flush (Ns Flush) (08/25/17 18:15) Labs Laboratory Tests Test 08/25/17 18:00 White Blood Count 16.6 TH/MM3 Red Blood Count 4.17 MIL/MM3 Hemoglobin 12.1 GM/DL Hematocrit 35.6 % Mean Corpuscular Volume 85.5 FL Mean Corpuscular Hemoglobin 29.1 PG Mean Corpuscular Hemoglobin Concent 34.1 % Red Cell Distribution Width 13.9 % Platelet Count 506 TH/MM3 Mean Platelet Volume 7.9 FL Neutrophils (%) (Auto) 75.8 % Lymphocytes (%) (Auto) 15.1 % Monocytes (%) (Auto) 4.7 % Eosinophils (%) (Auto) 3.9 % Basophils (%) (Auto) 0.5 % Neutrophils # (Auto) 12.5 TH/MM3 Lymphocytes # (Auto) 2.5 TH/MM3 Monocytes # (Auto) 0.8 TH/MM3 Eosinophils # (Auto) 0.6 TH/MM3 Basophils # (Auto) 0.1 TH/MM3 CBC Comment DIFF FINAL Differential Comment Prothrombin Time 9.4 SEC Prothromb Time International Ratio 0.9 RATIO Activated Partial Thromboplast Time 24.6 SEC Blood Urea Nitrogen 9 MG/DL Creatinine 0.50 MG/DL Random Glucose 59 MG/DL Total Protein 7.1 GM/DL Albumin 2.7 GM/DL Calcium Level 9.0 MG/DL Alkaline Phosphatase 161 U/L Aspartate Amino Transf (AST/SGOT) 14 U/L Alanine Aminotransferase (ALT/SGPT) 19 U/L Total Bilirubin 0.2 MG/DL Sodium Level 136 MEQ/L Potassium Level 3.8 MEQ/L Chloride Level 104 MEQ/L Carbon Dioxide Level 26.2 MEQ/L Anion Gap 6 MEQ/L Estimat Glomerular Filtration Rate 144 ML/MIN [facility] Medical Record Reviewed: Yes Supervised Visit with IQRA: Yes Interpretation(s) Last Impressions Lower Extremity Ultrasound 08/25/17 3872 Signed Impressions: Service Date/Time: Friday, August 25, 2017 19:10 - CONCLUSION: No evidence of deep venous thrombosis within the right lower extremity. Chuck Goldsmith MD Narrative Course I, Dr. Jacobsen, have reviewed the advance practice practitioner's documentation and am in agreement, met with the patient face to face, made the diagnosis, and the medical decision making was done by me. The patient was initially evaluated by Rose. Please see their complete history and physical. *My assessment and Findings: The patient presents with a history of cramping, swelling, pain in the right lower extremity. The patient is currently . She denies having any prior history of DVT or PE. She does report having a history of hypertension and is on labetalol for this. During the course of the patients emergency department visit, the patients history, examination, and differential diagnosis were reviewed with the patient. The patient was placed on a cardiac surgeon with oximetry and frequent blood pressure monitoring. The patient had IV access obtained and blood work sent for analysis. The patients laboratory studies were reviewed and remarkable for a white count of 16.6, hemoglobin 12.1, platelets 506 with 75.8 neutrophils, CMP is remarkable for a glucose of 59 which I doubt the validity of as the patient is awake and alert and has no symptoms of hypoglycemia, AST 14, alkaline phosphatase 161, albumin 2.7. PT 9.4, PTT 24.6. Radiology studies were reviewed and remarkable for ultrasound is negative for DVT. The patient will be sent to labor and delivery for evaluation of her . Diagnosis Primary Impression: Right leg pain Additional Impression: Abdominal pain affecting Courtney Jacobsen MD Aug 25, 2017 20:10
--- NOTE | 2017-08-25 22:28 | PD ---
HPI Chief Complaint Right calf pain Date Seen: Aug 25, 2017 Time Seen: 22:22 Travel History International Travel<30 Days: No Contact w/Intl Traveler<30Days: No Known Affected Area: No History of Present Illness HPI 31-year-old who is at 27 weeks and 2 days comes in and was seen in the main emergency department due to right calf pain to rule out a DVT. Patient had blood work done and a Doppler which was normal. Patient states that she also has pelvic pressure for several weeks. Patient sees an OB provider in [place] for her care but is interested in transferring to a physician here in [place]. Patient is also sees Dr. Vergara for essential thrombocytosis and is maintained on a full dose aspirin 325 mg by her roll off driver. Patient has chronic hypertension during this treated with labetalol 100 mg back twice daily Weeks Gestation: 27 Para: 1 : 5 Miscarriage: 3 History Past Medical History Narrative Medical Chronic hypertension presently on labetalol Essential thrombocytosis Obstetric History Obstetric History Spontaneous vaginal delivery, full-term Past Surgical History Narrative Surgical Bone marrow biopsy Left ovarian cyst Hysteroscopy D&C Family History Family History: Negative Social History Alcohol Use: No Tobacco Use: No Substance Abuse: No Allergies-Medications (Allergen,Severity, Reaction): Coded Allergies: amoxicillin (Unverified Allergy, Severe, Rash, 08/25/17) clavulanic acid (Unverified Allergy, Severe, Rash, 08/25/17) Home Meds Reported Medications Labetalol (Labetalol) 100 Mg Tab, 100 MG PO BID for Blood Pressure Management, TAB 0 Refills 08/25/17 Aspirin (Aspirin) 325 Mg Tab, 325 MG PO DAILY, #30 TAB 0 Refills 11/29/16 Discontinued Reported Medications Bupropion HCl ER 24 HR (Wellbutrin Xl 24 HR) 300 Mg Tab, 300 MG PO DAILY for Control Depression, TAB 0 Refills 11/29/16 Discontinued Scripts Metoclopramide (Reglan) 10 Mg Tab, 10 MG PO TID Y for NAUSEA OR VOMITING, #10 TAB 0 Refills Prov:Josh Swartz MD 05/09/17 Review of Systems Except as stated in HPI: all other systems reviewed are Neg Physical Exam Vital Signs Date Time Temp Pulse Resp B/P (MAP) Pulse Ox O2 Delivery O2 Flow Rate FiO2 08/25/17 19:42 96 2.00 08/25/17 19:42 98 Room Air 08/25/17 17:10 98.3 92 18 137/72 (93) 100 Narrative GENERAL: Well-nourished, well-developed patient. SKIN: Warm and dry. HEAD: Normocephalic and atraumatic. EYES: No scleral icterus. No injection or drainage. ENT: No nasal drainage noted. Mucous membranes pink. Airway patent. NECK: Supple, trachea midline. No JVD. CARDIOVASCULAR: Regular rate and rhythm without murmurs, gallops, or rubs. RESPIRATORY: Breath sounds equal bilaterally. No accessory muscle use. ABDOMEN/GI: Abdomen soft, non-tender, bowel sounds present, no rebound, no guarding Gravid to [-27] weeks size Fundal Height: [-] GENITOURINARY: External Genitalia: intact and normal in appearance BUS glands: [-] Normal Cervix: [-] Posterior Dilatation: [-] Closed Effacement: [-] Long Station: [-] High Presentation: [-] Vertex Membranes: [intact or ruptured] intact Uterine Contractions: [-] Absent FHT's: Category: [-] 1 Baseline: [-] 140 Reactive: [-] Moderate Variability: [-] Moderate Decels: [-] Absent EXTREMITIES: No cyanosis or edema. Both calves are equal in circumference, negative Homans sign BACK: Nontender without obvious deformity. No CVA tenderness. NEUROLOGICAL: Awake and alert. Motor and sensory grossly within normal limits. Five out of 5 muscle strength in all muscle groups. Normal speech. Data Data Orders Orders Complete Blood Count With Diff (08/25/17 18:05) Comprehensive Metabolic Panel (08/25/17 18:05) Act Partial Throm Time (Ptt) (08/25/17 18:05) Prothrombin Time / Inr (Pt) (08/25/17 18:05) Iv Access Insert/Monitor (08/25/17 18:05) Electrocardiogram (08/25/17 18:05) Ecg Monitoring (08/25/17 18:05) Oximetry (08/25/17 18:05) Oxygen Administration (08/25/17 18:05) Us Leg Venous Doppler (08/25/17 18:05) Sodium Chloride 0.9% Flush (Ns Flush) (08/25/17 18:15) Urinalysis - C+S If Indicated (08/25/17 20:02) Labs Last Impressions Lower Extremity Ultrasound 08/25/17 1805 Signed Impressions: Service Date/Time: Friday, August 25, 2017 19:10 - CONCLUSION: No evidence of deep venous thrombosis within the right lower extremity. Chuck Goldsmith MD Laboratory Tests Test 08/25/17 18:00 White Blood Count 16.6 Red Blood Count 4.17 Hemoglobin 12.1 Hematocrit 35.6 Mean Corpuscular Volume 85.5 Mean Corpuscular Hemoglobin 29.1 Mean Corpuscular Hemoglobin Concent 34.1 Red Cell Distribution Width 13.9 Platelet Count 506 Mean Platelet Volume 7.9 Neutrophils (%) (Auto) 75.8 Lymphocytes (%) (Auto) 15.1 Monocytes (%) (Auto) 4.7 Eosinophils (%) (Auto) 3.9 Basophils (%) (Auto) 0.5 Neutrophils # (Auto) 12.5 Lymphocytes # (Auto) 2.5 Monocytes # (Auto) 0.8 Eosinophils # (Auto) 0.6 Basophils # (Auto) 0.1 CBC Comment DIFF FINAL Differential Comment Prothrombin Time 9.4 Prothromb Time International Ratio 0.9 Activated Partial Thromboplast Time 24.6 Blood Urea Nitrogen 9 Creatinine 0.50 Random Glucose 59 Total Protein 7.1 Albumin 2.7 Calcium Level 9.0 Alkaline Phosphatase 161 Aspartate Amino Transf (AST/SGOT) 14 Alanine Aminotransferase (ALT/SGPT) 19 Total Bilirubin 0.2 Sodium Level 136 Potassium Level 3.8 Chloride Level 104 Carbon Dioxide Level 26.2 Anion Gap 6 Estimat Glomerular Filtration Rate 144 MDM Medical Record Reviewed: Yes Plan 31-year-old at 27 weeks 2 days, pelvic pressure no signs of labor at this time cervix is closed 1. Right calf pain, exam is not consistent with a DVT and her Doppler was negative. 2. Essential thrombocytosis to continue on aspirin, patient has an appointment with the perinatologist next week 3. Information was given for physicians here [facility] for transfer of care 4. Chronic hypertension presently normotensive on labetalol Diagnosis Diagnosis: Primary Impression: Right leg pain Additional Impressions: 27 weeks gestation of Essential thrombocytosis Chronic hypertension during , antepartum Disposition: 01 DISCHARGE HOME Condition: Stable Referrals: Sas Analyst Patient Instructions: General Instructions Additional Instructions: Rest and drink plenty of fluids. Take Tylenol as directed, as needed for pain. Apply ice to the affected area for 20 minutes at a time, as needed for pain and swelling. Follow-up with a primary care physician. Return to the emergency room for worsening symptoms. Departure Forms: Tests/Procedures Erin Middleton MD Aug 25, 2017 22:28
--- NOTE | 2017-08-26 09:42 | EKG ---
Date Performed: 08/25/2017 Time Performed: 18:25:36 PTAGE: 31 years EKG: Sinus rhythm NORMAL ECG Since the prior tracing, there has been no significant change PREVIOUS TRACING : 10/18/2012 22.10 DOCTOR: Nam De La Rosa Interpretating Date/Time 08/26/2017 09:40:55
== END 2017-08-25 22:42 | disposition home or self-care (01) ==
LOC: NEPC 17:09 → HOBED 22:42
DX: O26.892 Other specified pregnancy related conditions, second trimester (principal); M79.661 Pain in right lower leg; O10.912 Unspecified pre-existing hypertension complicating pregnancy, second trimester; O99.112 Other diseases of the blood and blood-forming organs and certain disorders involving the immune mechanism complicating pregnancy, second trimester; D47.3 Essential (hemorrhagic) thrombocythemia; Z3A.27 27 weeks gestation of pregnancy; Z79.82 Long term (current) use of aspirin
CPT/HCPCS: 80053; 85025; 85610; 85730; 93005; 93971; 99285

== ENCOUNTER → 2017-08-28 | Outpatient (CLI) | payer OTHER ==
[~2017-08-28] MED LIST changes: +LABE100T2 PO; -REGL10TA5 PO; -WELLTAB39 PO
== END ==
LOC: HPND 09:03
DX: O99.113 Other diseases of the blood and blood-forming organs and certain disorders involving the immune mechanism complicating pregnancy, third trimester (principal); O10.913 Unspecified pre-existing hypertension complicating pregnancy, third trimester; D69.6 Thrombocytopenia, unspecified
CPT/HCPCS: 76816

== ENCOUNTER 2017-09-29 12:32 | Emergency (ER) | payer OTHER ==
[2017-09-29 14:49] VITALS: BP 145/79; PULSE 93
--- NOTE | 2017-09-29 14:52 | PD ---
HPI Travel History International Travel<30 Days: No Contact w/Intl Traveler<30Days: No History of Present Illness HPI Patient is a 32 year old at 32/2 who presents today for abdominal pain. Patient reports that yesterday while working she noticed left lower abdominal pain. It was sharp in quality, nonradiating, constant. Noted some rare Sumner Styles contractions. Also reported that she noticed reduced movement earlier this morning. Reports that there is normal movement at the time of examination. Denies consistent contractions, large gushes of fluid , discharge. No malodorous or abnormally colored discharge, bloody discharge, dysuria, hematuria, frequency, change in urine color/smell, change in bowel habits. Patient reports a past history of essential thrombocytosis, denies calf and leg pain at this time. No shortness of breath, chest pain, difficulty breathing. No lightheadedness, dizziness, change in vision. No other complaint today. Weeks Gestation: 32 Para: 1 : 5 Miscarriage: 3 : 0 History Past Medical History Narrative Medical Essential thrombocytosis Hypertension Obstetric History Obstetric History 1 , 3 miscarriages Past Surgical History Narrative Surgical "surgery for endometrosis" Family History Family History: Negative Social History Alcohol Use: No Tobacco Use: No Substance Abuse: No Allergies-Medications (Allergen,Severity, Reaction): Coded Allergies: amoxicillin (Unverified Allergy, Severe, Rash, 09/29/17) clavulanic acid (Unverified Allergy, Severe, Rash, 09/29/17) Home Meds Reported Medications Labetalol (Labetalol) 100 Mg Tab, 100 MG PO BID for Blood Pressure Management, TAB 0 Refills 08/25/17 Aspirin (Aspirin) 325 Mg Tab, 325 MG PO DAILY, #30 TAB 0 Refills 11/29/16 Review of Systems General / Constitutional: No: Fever, Chills Eyes: No: Diploplia, Blurred Vision, Visual changes, Pain HENT: No: Headaches, Vertigo, Lightheadedness Cardiovascular: No: Irregular Rhythm, Chest Pain or Discomfort, Palpitations Respiratory: No: Cough, Short of Breath, Wheezing Gastrointestinal: Abdominal Pain, No: Nausea, Vomiting, Diarrhea, Hematemesis, Hematochezia, Constipation, Changes in Bowel Habits, Indigestion Genitourinary: No: Urgency, Frequency, Dysuria, Nocturia, Hematuria, Discharge , Vaginal Bleeding Musculoskeletal: No: Limited ROM, Weakness Skin: No Rash, No Itching, No Dryness Neurologic: No: Weakness, Dizziness Psychiatric: No: Anxiety, Depression Endocrine: No: Polydipsia, Polyuria Hematologic/Lymphatic: No Easy Bruising, No Lymph Node Enlargement Physical Exam Narrative GENERAL: Well-nourished, well-developed patient. SKIN: Warm and dry. HEAD: Normocephalic and atraumatic. EYES: No scleral icterus. No injection or drainage. ENT: No nasal drainage noted. Mucous membranes pink. Airway patent. NECK: Supple, trachea midline. No JVD. CARDIOVASCULAR: Regular rate and rhythm without murmurs, gallops, or rubs. RESPIRATORY: Breath sounds equal bilaterally. No accessory muscle use. ABDOMEN/GI: Abdomen soft, mild tenderness left lower quadrant, bowel sounds present, no rebound, no guarding FHT's: Category: 1 Baseline: 145 Reactive: Yes Variability: Moderate Decels: None EXTREMITIES: No cyanosis or edema. BACK: Nontender without obvious deformity. No CVA tenderness. NEUROLOGICAL: Awake and alert. Motor and sensory grossly within normal limits. Five out of 5 muscle strength in all muscle groups. Normal speech. Data Data Vital Signs Reviewed: Yes Orders Orders Vital Signs (Adult) .ON ADMISSION (09/29/17 14:48) ^ Labor Status (09/29/17 14:48) Heart (09/29/17 14:48) ^ Non Stress Test (09/29/17 14:48) ^ Hydration (09/29/17 14:48) MDM Plan Patient is a 32 year old at 32/2 who presents today for abdominal pain. Past history of essential thrombocytosis. Currently without signs of DVT or PE. -FHT category 1, reassuring -Encourage PO hydration -Continue routine antepartum care -Return to ED for increasing pain, SOB, signs of labor, any other concerning signs DW Dr. Tse Diagnosis Diagnosis: Primary Impression: Round ligament pain Additional Impression: 32 weeks gestation of Disposition: 01 DISCHARGE HOME Condition: Stable Patient Instructions: General Instructions, Early Labor Signs (ED), Abdominal Pain in (ED), Movement (ED) Gama Tapia MD R1 Sep 29, 2017 14:52
[2017-09-29 15:00] VITALS: RESP 16
[2017-09-29] MEDS ORDERED: ACETAMINOPHEN 325 MG TAB PO ONE (15:45)
[2017-09-29 16:32] VITALS: RESP 16
== END 2017-09-29 16:42 | disposition home or self-care (01) ==
LOC: HOBED 12:32
DX: O26.893 Other specified pregnancy related conditions, third trimester (principal); R10.2 Pelvic and perineal pain; Z3A.32 32 weeks gestation of pregnancy
CPT/HCPCS: 59025

== ENCOUNTER 2017-11-11 09:56 | Emergency (ER) | payer OTHER ==
--- NOTE | 2017-11-11 10:42 | PD ---
HPI Chief Complaint Uterine ctx Date Seen: Nov 11, 2017 Time Seen: 10:42 Travel History International Travel<30 Days: No Contact w/Intl Traveler<30Days: No History of Present Illness HPI Patient is a 32 year old at 38 and 5/7 weeks gestation who presents to the OB ED with CTX every few minutes this morning. She denies leakage of fluid, vaginal bleeding, and contractions. She feels baby moving regularly. She denies SIMMS/N/V/D/fever/sick contacts/SOB/calf pain/dizziness/seeing spots. OB care is with a provider in [place]. Weeks Gestation: 38 Para: 1 : 5 Miscarriage: 3 : 0 History Past Medical History Narrative Medical chronic HTN essential thrombocytosis chronic anemia Obstetric History Obstetric History 3 miscarriage 1 in 2015, 6 lb 8 oz, male On aspirin 81mg daily, PNV, iron, labetolol 100mg BID Past Surgical History Narrative Surgical Ovarian cyst removal Family History Family History: Negative Social History Alcohol Use: No Tobacco Use: No Substance Abuse: No Allergies-Medications (Allergen,Severity, Reaction): Coded Allergies: amoxicillin (Unverified Allergy, Severe, Rash, 09/29/17) clavulanic acid (Unverified Allergy, Severe, Rash, 09/29/17) Home Meds Reported Medications Labetalol (Labetalol) 100 Mg Tab, 100 MG PO BID for Blood Pressure Management, TAB 0 Refills 08/25/17 Aspirin (Aspirin) 325 Mg Tab, 325 MG PO DAILY, #30 TAB 0 Refills 11/29/16 Review of Systems General / Constitutional: No: Fever, Chills Eyes: No: Blurred Vision, Visual changes HENT: No: Headaches, Vertigo Cardiovascular: No: Irregular Rhythm, Palpitations Respiratory: No: Cough, Short of Breath Gastrointestinal: Abdominal Pain, No: Nausea, Vomiting, Diarrhea Genitourinary: No: Urgency, Dysuria Musculoskeletal: No: Weakness, Edema Skin: No Rash, No Itching Neurologic: No: Weakness, Syncope Psychiatric: No: Anxiety, Depression Physical Exam Narrative GENERAL: Well-nourished, well-developed patient. SKIN: Warm and dry. No rashes. HEAD: Normocephalic and atraumatic. EYES: No scleral icterus. No injection or drainage. ENT: No nasal drainage noted. Mucous membranes pink. Airway patent. NECK: Supple, trachea midline. No JVD. CARDIOVASCULAR: Regular rate and rhythm without murmurs, gallops, or rubs. RESPIRATORY: Breath sounds equal bilaterally. No accessory muscle use. ABDOMEN/GI: Abdomen soft, non-tender, bowel sounds present, no rebound, no guarding. Gravid. CTX noted. GENITOURINARY: Cervix closed, thick, high Presentation: vertex by bedside ultrasound Membranes: intact Uterine Contractions: q2-3 min FHT's: Category: 1 Baseline: 130 Reactive: 150 Variability: mod Decels: absent EXTREMITIES: No cyanosis or edema. BACK: Nontender without obvious deformity. No CVA tenderness. NEUROLOGICAL: Awake and alert. Motor and sensory grossly within normal limits. Five out of 5 muscle strength in all muscle groups. Normal speech. Data Data Vital Signs Reviewed: Yes Orders Orders Vital Signs (Adult) .ON ADMISSION (11/11/17 10:37) ^ Labor Status (11/11/17 10:37) ^ Non Stress Test (11/11/17 10:37) ^ Hydration (11/11/17 10:37) MDM Medical Record Reviewed: Yes Narrative Course / MDM 32 year old presenting with CTX. Cervix is closed. Pt frannie every 2 minutes. Early labor suspected but pt stable for discharge home. OB care in [place]. PMH significant for HTN on labetalol 100mg BID and aspirin 81mg daily. BP 140/80 , no symptoms today. Continue meds, likely needs to discontinue ASA but given history of essential thrombocytosis will defer to PCP. [facility], wnl last visit. US at bedside today showing vertex presentation Category 1 tracing GBS to be reviewed Will give Demerol 50mg IM and Phenergan 20mg IM x 1 for pain, discharge to home , counseled on reasons to return, f/u closely with PCP Plan D/C home SDW Dr. Dumont Diagnosis Diagnosis: Primary Impression: with 38 completed weeks gestation Additional Impression: Uterine contractions during Disposition: DISCHARGE HOME Condition: Stable Patient Instructions: Abdominal Pain in (ED) Yuliana De La Rosa MD R2 Nov 11, 2017 10:42
[2017-11-11] MEDS ORDERED: PROMETHAZINE INJ 25 MG/ML VIAL IM ONE (11:00)
[2017-11-11] MEDS ORDERED: MEPERIDINE HCL 50 MG/ML VIAL IM ONE (11:00)
[2017-11-11 11:04] VITALS: BP 125/78; PULSE 97
== END 2017-11-11 11:31 | disposition home or self-care (01) ==
LOC: HOBED 09:56
DX: O26.893 Other specified pregnancy related conditions, third trimester (principal); O16.3 Unspecified maternal hypertension, third trimester; Z3A.38 38 weeks gestation of pregnancy
CPT/HCPCS: 59025; 76815; 96372; 99284; J2175; J2550

== ENCOUNTER 2017-11-19 15:48 | Emergency (ER) | payer OTHER ==
[2017-11-19] VITALS (8 sets, daily range): PULSE 98–104; O2SAT 100
--- NOTE | 2017-11-19 16:55 | PD ---
HPI Travel History International Travel<30 Days: No Contact w/Intl Traveler<30Days: No History of Present Illness HPI 32-year-old at 39/4 weeks presents to the OB ED complaining of one episode of vomiting and pelvic pain. Accompanied by mom. She reports that her OB provider is in [place]. She reports that her "stomach has been hard all day." She started feeling pelvic pain and right-sided pressure early this afternoon. She also reports one episode of vomiting, a dime size amount of pink tinged mucus. She endorses nausea. She endorses good movements. She is having mild contractions. She denies leakage of fluid, vaginal bleeding , chest pain. History Past Medical History Narrative Medical Hypertension, currently on labetalol Thrombocytosis History of endometriosis Obstetric History Obstetric History 031 3 miscarriages Past Surgical History Narrative Surgical Left ovarian cyst Family History Narrative Family History Diabetes Hypertension Social History Alcohol Use: No Tobacco Use: No Substance Abuse: No Allergies-Medications (Allergen,Severity, Reaction): Coded Allergies: amoxicillin (Unverified Allergy, Severe, Rash, 09/29/17) clavulanic acid (Unverified Allergy, Severe, Rash, 09/29/17) Home Meds Reported Medications Labetalol (Labetalol) 100 Mg Tab, 100 MG PO BID for Blood Pressure Management, TAB 0 Refills 08/25/17 Aspirin (Aspirin) 325 Mg Tab, 325 MG PO DAILY, #30 TAB 0 Refills 11/29/16 Review of Systems Except as stated in HPI: all other systems reviewed are Neg Physical Exam Narrative GENERAL: Well-nourished, well-developed patient. SKIN: Warm and dry. HEAD: Normocephalic and atraumatic. EYES: No scleral icterus. No injection or drainage. ENT: No nasal drainage noted. Mucous membranes pink. Airway patent. NECK: Supple, trachea midline. No JVD. CARDIOVASCULAR: Regular rate and rhythm without murmurs, gallops, or rubs. RESPIRATORY: Breath sounds equal bilaterally. No accessory muscle use. ABDOMEN/GI: Abdomen soft, non-tender, bowel sounds present, no rebound, no guarding GENITOURINARY: Cervix: posterior Dilatation: 0 Effacement: 0 Station: -4 Presentation: - Membranes: intact Uterine Contractions: irregular contractions FHT's: Category: 1 Baseline: 130 Reactive: yes Variability: moderate Decels: none EXTREMITIES: No cyanosis or edema. BACK: Nontender without obvious deformity. NEUROLOGICAL: Awake and alert. Motor and sensory grossly within normal limits. Five out of 5 muscle strength in all muscle groups. Normal speech. Data Data Vital Signs Reviewed: Yes MDM Plan 32-year-old female at 39/4 weeks presents to the OB with latent labor. - intrauterine , category 1, reassuring -Closed cervix -Advised patient to hydrate -Tylenol for pain Follow-up with OB provider for routine OB care sdw Dr. Tse Diagnosis Diagnosis: Primary Impression: Additional Impression: Irregular contractions Disposition: DISCHARGE HOME Desiree Kwok MD R1 Nov 19, 2017 16:55
== END 2017-11-19 18:07 | disposition home or self-care (01) ==
LOC: HOBED 15:48
DX: O47.1 False labor at or after 37 completed weeks of gestation (principal); O21.9 Vomiting of pregnancy, unspecified; O16.3 Unspecified maternal hypertension, third trimester; D47.3 Essential (hemorrhagic) thrombocythemia; Z3A.39 39 weeks gestation of pregnancy; Z79.82 Long term (current) use of aspirin; Z79.899 Other long term (current) drug therapy; Z88.0 Allergy status to penicillin
CPT/HCPCS: 59025

== ENCOUNTER 2017-11-22 18:01 | Inpatient (IN) | payer OTHER ==
[~2017-11-22] VITALS: Ht 165.1 cm; Wt 94.0 kg
[2017-11-22] MEDS ORDERED: SODIUM CHLORIDE 0.9% FLUSH 10 ML FLUSH IV FLUSH PRN (21:15)
[2017-11-22] MEDS ORDERED: DINOPROSTONE 10 MG VAG INSERT VAGINAL ONE (21:15)
--- NOTE | 2017-11-22 22:04 | HHI.HP ---
HPI Chief Complaint Here for induction Date Seen: Nov 22, 2017 Time Seen: 21:56 Travel History International Travel<30 Days: No Contact w/Intl Traveler<30Days: No Known Affected Area: No History of Present Illness HPI 32-year-old 4 para 1 AB 2 at 40 weeks gestation who is admitted today for induction of labor secondary to chronic hypertension and thrombocytosis. She had been followed for care in [place] and had consultation here with regional obstetrical consultants who recommended delivery due to the above issues. History Past Medical History Narrative Medical Chronic hypertension predating the . She previously had been on lisinopril and transition to labetalol 100 mg twice daily during the Obstetric History Obstetric History 2 SABs 1 term vaginal delivery 12 years ago care this has been complicated by chronic hypertension for which she takes 100 mg of labetalol twice daily. She has also had thrombocytosis which has required no treatment. Past Surgical History Narrative Surgical Laparoscopy 2 for endometriosis and an ovarian cyst Family History Family History: Negative Social History Alcohol Use: No Tobacco Use: No Substance Abuse: No Allergies-Medications (Allergen,Severity, Reaction): Coded Allergies: amoxicillin (Unverified Allergy, Severe, Rash, 09/29/17) clavulanic acid (Unverified Allergy, Severe, Rash, 09/29/17) Home Meds Reported Medications Labetalol (Labetalol) 100 Mg Tab, 100 MG PO BID for Blood Pressure Management, TAB 0 Refills 08/25/17 Aspirin (Aspirin) 325 Mg Tab, 325 MG PO DAILY, #30 TAB 0 Refills 11/29/16 Review of Systems Except as stated in HPI: all other systems reviewed are Neg Physical Exam Narrative GENERAL: Well-nourished, well-developed patient. SKIN: Warm and dry. HEAD: Normocephalic and atraumatic. EYES: No scleral icterus. No injection or drainage. ENT: No nasal drainage noted. Mucous membranes pink. Airway patent. NECK: Supple, trachea midline. No JVD. CARDIOVASCULAR: Regular rate and rhythm without murmurs, gallops, or rubs. RESPIRATORY: Breath sounds equal bilaterally. No accessory muscle use. BREASTS: Bilateral exam showed no masses , no retractions, no nipple discharge. ABDOMEN/GI: Abdomen soft, non-tender, bowel sounds present, no rebound, no guarding Gravid to [-] weeks size Fundal Height: [39-] GENITOURINARY: External Genitalia: intact and normal in appearance BUS glands: [-neg] Cervix: [-] Dilatation: [cl-] Effacement: [-30] Station: [-3-] Presentation: [-v] Membranes: [intact ] Uterine Contractions: [rare-] FHT's: Category: [-1] Baseline: [-] Reactive: [-] Variability: [-] Decels: [-] EXTREMITIES: No cyanosis or edema. BACK: Nontender without obvious deformity. No CVA tenderness. NEUROLOGICAL: Awake and alert. Motor and sensory grossly within normal limits. Five out of 5 muscle strength in all muscle groups. Normal speech. Caprini VTE Risk Assessment Caprini VTE Risk Assessment: Mod/High Risk (score >= 2) Caprini Risk Assessment Model Point Value = 1 Point Value = 2 Point Value = 3 Point Value = 5 Age 41-60 Minor surgery BMI > 25 kg/m2 Swollen legs Varicose veins or History of unexplained or recurrent spontaneous Oral contraceptives or hormone replacement Sepsis (< 1 month) Serious lung disease, including pneumonia (< 1 month) Abnormal pulmonary function Acute myocardial infarction Congestive heart failure (< 1 month) History of inflammatory bowel disease Medical patient at bed rest Age 61-74 Arthroscopic surgery Major open surgery (> 45 min) Laparoscopic surgery (> 45 min) Malignancy Confined to bed (> 72 hours) Immobilizing plaster cast Central venous access Age >= 75 History of VTE Family history of VTE Factor V Leiden Prothrombin [id number] Lupus anticoagulant Anticardiolipin antibodies Elevated serum homocysteine Heparin-induced thrombocytopenia Other congenital or acquired thrombophilia Stroke (< 1 month) Elective arthroplasty Hip, pelvis, or leg fracture Acute spinal cord injury (< 1 month) Prophylaxis Regimen Total Risk Factor Score Risk Level Prophylaxis Regimen 0-1 Low Early ambulation 2 Moderate Order ONE of the following: *Sequential Compression Device (SCD) *Heparin 5000 units SQ BID 3-4 Higher Order ONE of the following medications: *Heparin 5000 units SQ TID *Enoxaparin/Lovenox 40 mg SQ daily (WT < 150 kg, CrCl > 30 mL/min) *Enoxaparin/Lovenox 30 mg SQ daily (WT < 150 kg, CrCl > 10-29 mL/min) *Enoxaparin/Lovenox 30 mg SQ BID (WT < 150 kg, CrCl > 30 mL/min) AND/OR *Sequential Compression Device (SCD) 5 or more Highest Order ONE of the following medications: *Heparin 5000 units SQ TID (Preferred with Epidurals) *Enoxaparin/Lovenox 40 mg SQ daily (WT < 150 kg, CrCl > 30 mL/min) *Enoxaparin/Lovenox 30 mg SQ daily (WT < 150 kg, CrCl > 10-29 mL/min) *Enoxaparin/Lovenox 30 mg SQ BID (WT < 150 kg, CrCl > 30 mL/min) AND *Sequential Compression Device (SCD) Data Data Vital Signs Reviewed: Yes Orders Orders Admit To Inpatient (11/22/17 ) Diet Liquid (11/23/17 Breakfast) Activity Oob Ad Reina (11/22/17 21:10) ^ Labor Induction (11/22/17 21:10) ^ Saline Lock (11/22/17 21:10) ^ Vaginal Insert (11/22/17 21:10) ^ Vaginal Lavage (11/22/17 21:10) Heart (11/22/17 21:10) Sodium Chloride 0.9% Flush (Ns Flush) (11/23/17 09:00) Sodium Chloride 0.9% Flush (Ns Flush) (11/22/17 21:15) Dinoprostone Vag Insert (Cervidil Vag In (11/22/17 21:15) Inpatient Certification (11/22/17 ) Group B Strep Pcr (Rapid) (11/22/17 21:52) Assessment/Plan Assessment and Plan Assessment: 40 week intrauterine with chronic hypertension and thrombocytosis admitted for induction Plan: She consents to Cervidil cervical ripening followed by Pitocin induction. CBC, CMP Rapid GBS due to unknown status Tono Cronin MD Nov 22, 2017 22:04
[2017-11-22 22:51] LABS: HEMATOCRIT 36.9 % (35.0-46.0); HEMOGLOBIN 12.6 GM/DL (11.6-15.3); MEAN CELL VOLUME 84.4 FL (80.0-100.0); MEAN CORPUSCULAR HEMOGLOBIN 28.9 PG (27.0-34.0); MEAN CORPUSCULAR HGB CONC 34.2 % (32.0-36.0); MEAN PLATELET VOLUME 8.8 FL (7.0-11.0); PLATELET COUNT 409 TH/MM3 (150-450); RED BLOOD COUNT 4.37 MIL/MM3 (4.00-5.30); WHITE BLOOD COUNT 14.5 TH/MM3 (4.0-11.0)
[2017-11-22 23:00] VITALS: RESP 16
[2017-11-22 23:12] LABS: ALBUMIN 2.5 GM/DL (3.4-5.0); AST (GOT) 14 U/L (15-37); BICARBONATE 24.9 MEQ/L (21.0-32.0); BLOOD UREA NITROGEN 11 MG/DL (7-18); CALCIUM 8.9 MG/DL (8.5-10.1); CHLORIDE 107 MEQ/L (98-107); CREATININE 0.61 MG/DL (0.50-1.00); GLOMERULAR FILTRATION RATE 114 ML/MIN (>89); GLUCOSE,RANDOM 105 MG/DL (74-106); SODIUM (NA) 140 MEQ/L (136-145)
[2017-11-22 23:15] LABS: ALKALINE PHOSPHATASE 376 U/L (45-117); ALT (GPT) 18 U/L (10-53); TOTAL BILIRUBIN ADULT 0.2 MG/DL (0.2-1.0); TOTAL PROTEIN 6.8 GM/DL (6.4-8.2)
[2017-11-22] MEDS ORDERED: LIDOCAINE HCL 1% 50 ML VIAL I-DERMAL PRN (23:30)
[2017-11-22] MEDS ORDERED: LACTATED RINGER'S 1000 ML BOLUS IV PRN (23:30)
[2017-11-22] MEDS ORDERED: NS 1000 ML IV PRN (23:30)
[2017-11-22] MEDS ORDERED: OXYTOCIN 30 UNITS 500ML PREMIX IV ONE (23:30)
[2017-11-22] MEDS ORDERED: LIDOCAINE HCL 1% 50 ML VIAL INFIL PRN (23:30)
[2017-11-22] MEDS ORDERED: NS 500 ML BOLUS IV PRN (23:30)
[2017-11-22] MEDS ORDERED: CITRIC ACID-SODIUM CITRATE LIQ 30 ML UDC PO SCH (23:30)
[2017-11-22] MEDS ORDERED: MINERAL OIL 10 ML VIAL TOPICAL PRN (23:30)
[2017-11-23] VITALS (122 sets, daily range): BP systolic 103–164; BP diastolic 61–99; PULSE 82–120; RESP 16–22; TEMP 97.6–99.6
[2017-11-23] MEDS: LACTATED RINGER'S 1000 ML IV SCH ×3 (03:48→18:41)
[2017-11-23 05:09] LABS: BACTERIA, URINE RARE /hpf; BILIRUBIN, URINE NEG (NEG); BLOOD, URINE NEG (NEG); GLUCOSE,URINE NEG (NEG); KETONE, URINE NEG (NEG); MUCUS URINE FEW /lpf (OCC); NITRITE,URINE NEG (NEG); SQUAMOUS EPITHELIAL CELL URINE <1 /hpf (0-5); URINE COLOR LIGHT-YELLOW (YELLW/STRAW); URINE LEUKOCYTE ESTERASE NEG (NEG)
[2017-11-23] MEDS ORDERED: TERBUTALINE INJ 1 MG/ML AMP ONE ×2 (05:57→16:58)
[2017-11-23] MEDS ORDERED: TERBUTALINE INJ 1 MG/ML AMP SQ SCH (06:00)
[2017-11-23] MEDS ORDERED: fentaNYL 2MCG-BUPIV 0.125% INJ 100 ML ONE ×2 (07:38→15:57)
[2017-11-23 07:57] LABS: BANDS 1 % (0-6); BASOPHILS 1 % (0-2); LYMPHOCYTES 11 % (9-44); METAMYELOCYTES 1 % (0-1); MONOCYTES 5 % (0-8); NEUTROPHIL # MANUAL DIFF 11.9 TH/MM3 (1.8-7.7); POLYS (SEG NEUTROPHILS) 80 % (16-70); TOXIC VACUOLATION PRESENT (NONE SEEN)
[2017-11-23] MEDS ORDERED: LIDOCAINE 1%/EPINEPHrine 1:100,000 SOLN 30 ML VIAL ONE (07:57)
--- NOTE | 2017-11-23 08:39 | PD.LABORPN ---
Objective Vital Signs Vital Signs Date Time Temp Pulse Resp B/P (MAP) Pulse Ox O2 Delivery O2 Flow Rate FiO2 11/23/17 08:00 97.9 11/23/17 07:59 101 142/94 (110) 11/23/17 07:58 20 11/23/17 07:55 106 11/23/17 07:50 93 11/23/17 07:45 97 11/23/17 07:35 103 11/23/17 07:30 97 11/23/17 07:11 100 136/78 (97) 11/23/17 07:10 99 11/23/17 07:05 111 11/23/17 07:00 98 11/23/17 04:50 16 11/23/17 04:00 16 11/23/17 03:52 97 132/88 (103) 11/23/17 02:59 16 11/23/17 02:00 16 Objective Pelvic Exam: Cervix: [-] Dilatation: 3cm Effacement: 70% Station: -3 Presentation: [-] Membranes: ruptured Uterine Contractions: [-] FHT's: Category: [-] Baseline: [-] Reactive: [-] Variability: [-] Decels: [-] Gaurav Cochran MD R2 Nov 23, 2017 08:39
[2017-11-23] MEDS ORDERED: SODIUM CHLORIDE 0.9% FLUSH 10 ML FLUSH IV FLUSH SCH ×2 (09:00→21:00)
[2017-11-23] MEDS ORDERED: OXYTOCIN 30 UNITS-500ML PREMIX 500 ML IV PRN (09:00)
--- NOTE | 2017-11-23 09:28 | PD.LABORPN ---
Subjective Subjective Patient doing well. No complaints. IUPC and AROM by Dr. Cronin. Objective Vital Signs Vital Signs Date Time Temp Pulse Resp B/P (MAP) Pulse Ox O2 Delivery O2 Flow Rate FiO2 11/23/17 09:05 95 129/80 (96) 11/23/17 09:00 95 126/78 (94) 11/23/17 09:00 96 11/23/17 08:55 96 18 11/23/17 08:55 139/85 (103) 11/23/17 08:50 100 131/76 (94) 11/23/17 08:45 96 133/75 (94) 11/23/17 08:40 95 134/86 (102) 11/23/17 08:40 95 11/23/17 08:38 17 11/23/17 08:36 100 123/68 (86) 11/23/17 08:35 92 11/23/17 08:30 98 118/74 (89) 11/23/17 08:26 99 20 127/63 (84) 11/23/17 08:25 92 11/23/17 08:20 93 11/23/17 08:20 111 148/85 (106) 11/23/17 08:17 103 11/23/17 08:17 143/81 (101) 11/23/17 08:15 158/99 (118) 11/23/17 08:15 104 11/23/17 08:15 106 11/23/17 08:00 97.9 11/23/17 07:59 101 142/94 (110) 11/23/17 07:58 20 11/23/17 07:55 106 11/23/17 07:50 93 11/23/17 07:45 97 11/23/17 07:35 103 11/23/17 07:30 97 11/23/17 07:11 100 136/78 (97) 11/23/17 07:10 99 11/23/17 07:05 111 11/23/17 07:00 98 11/23/17 04:50 16 11/23/17 04:00 16 11/23/17 03:52 97 132/88 (103) 11/23/17 02:59 16 11/23/17 02:00 16 Objective Pelvic Exam: Cervix: posterior Dilatation: 3 Effacement: 70 Station: -3 Presentation: vertex Membranes: AROM Uterine Contractions: every 3 min FHT's: Category: - Baseline: 140s Reactive: yes Variability: moderate Decels: none Assessment/Plan Assessment and Plan 32 yr old at 40weeks w/ hx of chronic HTN induced with Cervidil and in labor. -Intrauterine , category 1, reassuring -Cervix: 3cm, 70%, posterior, -2 -BPs 134-126/75-86 -AROM and IUPC by Dr. Cronin -Will start Pitocin 2-2-30 if not making progress -GBS negative -continue expectant management for vaginal delivery dw Desiree Marshall MD R1 Nov 23, 2017 09:28
[2017-11-23] MEDS ORDERED: LIDOCAINE 2%/EPINEPHrine PF 1:200,000 20ML SDV ONE (11:01)
[2017-11-23] MEDS ORDERED: LIDOCAINE HCL 1% PF 30 ML VIAL ONE (14:09)
--- NOTE | 2017-11-23 14:16 | PD.LABORPN ---
Subjective Subjective Patient resting comfortably in bed. Epidural in place. No complaints. Objective Vital Signs Vital Signs Date Time Temp Pulse Resp B/P (MAP) Pulse Ox O2 Delivery O2 Flow Rate FiO2 11/23/17 13:24 18 11/23/17 13:20 92 11/23/17 13:15 87 132/74 (93) 11/23/17 13:15 86 11/23/17 13:00 18 11/23/17 12:45 124/87 (99) 11/23/17 12:45 97 11/23/17 12:45 17 11/23/17 12:40 88 11/23/17 12:35 96 11/23/17 12:30 91 136/73 (94) 11/23/17 12:11 98.3 11/23/17 12:10 92 18 11/23/17 12:05 94 11/23/17 12:00 106 114/74 (87) 11/23/17 11:35 92 11/23/17 11:35 107 130/74 (92) 11/23/17 11:35 17 11/23/17 11:30 96 11/23/17 11:30 99 126/77 (93) 11/23/17 11:25 103 11/23/17 11:25 137/80 (99) 11/23/17 11:20 97 11/23/17 11:20 151/85 (107) 11/23/17 11:17 111 142/75 (97) 11/23/17 11:15 114 11/23/17 11:15 145/99 (114) 11/23/17 11:15 22 11/23/17 11:10 109 150/99 (116) 11/23/17 11:10 109 11/23/17 11:07 104 144/83 (103) 11/23/17 11:05 109 11/23/17 11:01 93 128/88 (101) 11/23/17 11:00 96 11/23/17 10:55 97 11/23/17 10:54 100 125/83 (97) 11/23/17 10:50 102 11/23/17 10:45 20 11/23/17 10:45 115 11/23/17 10:45 102 160/88 (112) 11/23/17 10:35 87 11/23/17 10:30 98 11/23/17 10:30 122/66 (84) 11/23/17 10:25 93 11/23/17 10:20 89 11/23/17 10:15 84 11/23/17 10:15 90 103/62 (76) 11/23/17 10:15 19 11/23/17 10:10 88 11/23/17 10:05 96 11/23/17 10:00 90 104/61 (75) 11/23/17 09:50 91 11/23/17 09:45 92 11/23/17 09:45 18 11/23/17 09:40 98 11/23/17 09:40 130/79 (96) 11/23/17 09:35 135/76 (95) 11/23/17 09:35 105 11/23/17 09:30 98 11/23/17 09:30 19 11/23/17 09:30 123/78 (93) 11/23/17 09:25 98 126/83 (97) 11/23/17 09:20 96 130/80 (97) 11/23/17 09:15 94 122/81 (95) 11/23/17 09:10 93 125/77 (93) 11/23/17 09:10 91 11/23/17 09:05 96 11/23/17 09:05 95 129/80 (96) 11/23/17 09:00 95 126/78 (94) 11/23/17 09:00 96 11/23/17 08:55 96 18 11/23/17 08:55 139/85 (103) 11/23/17 08:50 100 131/76 (94) 11/23/17 08:45 96 133/75 (94) 11/23/17 08:40 95 134/86 (102) 11/23/17 08:40 95 11/23/17 08:38 17 11/23/17 08:36 100 123/68 (86) 11/23/17 08:35 92 11/23/17 08:30 98 118/74 (89) 11/23/17 08:26 99 20 127/63 (84) 11/23/17 08:25 92 11/23/17 08:20 93 11/23/17 08:20 111 148/85 (106) 11/23/17 08:17 103 11/23/17 08:17 143/81 (101) 11/23/17 08:15 158/99 (118) 11/23/17 08:15 104 11/23/17 08:15 106 11/23/17 08:00 97.9 11/23/17 07:59 101 142/94 (110) 11/23/17 07:58 20 11/23/17 07:55 106 11/23/17 07:50 93 11/23/17 07:45 97 11/23/17 07:35 103 11/23/17 07:30 97 11/23/17 07:11 100 136/78 (97) 11/23/17 07:10 99 11/23/17 07:05 111 11/23/17 07:00 98 Objective Pelvic Exam (performed by Dr. Dumont with female ch: Cervix: posterior Dilatation: 5cm Effacement: 80% Station: -3 Presentation: vertex Membranes: AROM Uterine Contractions: every 3 min FHT's: Category: I Baseline: 130s Reactive: +accels Variability: moderate Decels: none noted Assessment/Plan Assessment and Plan 32 yr old at 40weeks w/ hx of chronic HTN induced with Cervidil and in active phase labor. -Intrauterine , category 1 FHT at this time, reassuring -Cervix: 5cm, 80%, posterior, high -Most recent BPs 110s-130s/60s-80s -s/p AROM and IUPC placement by Dr. Cronin -Continue Pitocin 2-2-30 if not making progress -Epidural in place -GBS negative -Continue expectant management for vaginal delivery dw Gaurav Wallis MD R2 Nov 23, 2017 14:16
[2017-11-23] MEDS ORDERED: DIPHTH/TETANUS/ACEL PERTUSSIS (BOOSTER) 0.5 ML VIAL/PFS IM ONE (16:00)
[2017-11-23] MEDS ORDERED: MEASLES, MUMPS, RUBELLA VACCINE 0.5 ML VIAL SQ ONE (16:00)
[2017-11-23] MEDS ORDERED: NO SYSTEM NARCOTICS PRN (16:30)
[2017-11-23] MEDS ORDERED: ePHEDrine/NS 25 MG/5 ML SYRINGE IV PUSH PRN (16:30)
[2017-11-23] MEDS ORDERED: fentaNYL 2MCG-BUPIV 0.125% 100 ML EPIDURAL PRN (16:30)
[2017-11-23] MEDS ORDERED: DO NOT ADMINISTER ANTICOAGULANTS PRN (16:30)
[2017-11-23] MEDS ORDERED: PREN29TA PO (18:44)
[2017-11-23] MEDS ORDERED: IRON PO (18:45)
--- NOTE | 2017-11-23 19:35 | PD.OB.DELI ---
Anesthesia: Epidural Episiotomy: None Vaginal Delivery: Normal, Spontaneous Presentation: Occiput anterior Nuchal Cord: None Delayed cord clamping (45 sec): Yes : Male Delivery date: Nov 23, 2017 Delivery time: 19:20 One Minute : 8 Five Minute : 9 Weight: 3585g Placenta: Spontaneous delivery Laceration: No lacerations Additional Information True knot noted in cord near baby Delivery by Dr. Kwok, Supervised by Dr. Tim Kwok,Desiree Stein MD R1 Nov 23, 2017 19:35
[2017-11-23] MEDS ORDERED: BENZOCAINE 20% TOPICAL SPRAY 60 ML CAN TOPICAL PRN (19:45)
[2017-11-23] MEDS ORDERED: ACETAMINOPHEN 325 MG TAB PO PRN (19:45)
[2017-11-23] MEDS ORDERED: ZOLPIDEM TARTRATE 5 MG TAB PO PRN (19:45)
[2017-11-23] MEDS ORDERED: ALUMINUM/MAGNESIUM/SIMETH 30 ML CUP PO PRN (19:45)
[2017-11-23] MEDS ORDERED: OXYTOCIN 30 UNITS-500ML PREMIX 500 ML IV SCH (19:45)
[2017-11-23] MEDS ORDERED: WITCH HAZEL 50%/GLYCERIN 12.5% 40 PAD JAR TOPICAL PRN (19:45)
[2017-11-23] MEDS ORDERED: ONDANSETRON ODT 4 MG TAB PO PRN (19:45)
[2017-11-23] MEDS: DOCUSATE SODIUM 50 MG/SENNA 8.6 MG TAB PO PRN (22:46)
[2017-11-23] MEDS: IBUPROFEN 800 MG TAB PO PRN (22:47)
[2017-11-24 00:05] VITALS: BP 121/72; PULSE 90; RESP 18; TEMP 98.6
--- NOTE | 2017-11-24 08:23 | HHI.OB ---
Subjective Remarks 32 year old female s/p at 40 wks gestation, PPD1. AFVSS. Patient reports she is feeling well. Bleeding is decreasing and pain is well- controlled. She is breast feeding and bonding well with baby. Ambulating without difficulties. She is tolerating a diet without nausea or vomiting. She has not had a bowel movement. She has not passed gas. Denies chest pain, dysuria , shortness of breath, or calf pain. Objective Vitals/I&O Vital Signs Date Time Temp Pulse Resp B/P (MAP) Pulse Ox O2 Delivery O2 Flow Rate FiO2 11/24/17 00:05 98.6 90 18 121/72 (88) 11/23/17 21:00 97 127/75 (92) 11/23/17 20:45 95 121/67 (85) 11/23/17 20:30 92 125/67 (86) 11/23/17 20:20 99.6 11/23/17 20:15 102 123/81 (95) 11/23/17 20:05 18 11/23/17 20:01 103 125/86 (99) 11/23/17 19:50 16 11/23/17 19:45 98 134/94 (107) 11/23/17 18:50 108 11/23/17 18:45 120 11/23/17 18:45 164/93 (116) 11/23/17 18:35 113 11/23/17 18:30 112 148/90 (109) 11/23/17 17:55 18 11/23/17 17:40 104 11/23/17 17:30 90 11/23/17 17:14 17 11/23/17 17:10 92 11/23/17 17:05 92 11/23/17 16:55 95 11/23/17 16:50 87 11/23/17 16:45 92 11/23/17 16:45 95 135/77 (96) 11/23/17 16:44 18 11/23/17 16:30 90 139/88 (105) 11/23/17 16:15 97.6 11/23/17 16:15 17 11/23/17 16:10 92 11/23/17 16:05 94 11/23/17 16:00 90 126/82 (97) 11/23/17 15:45 122/72 (89) 11/23/17 15:45 89 11/23/17 15:39 18 11/23/17 15:30 133/86 (102) 11/23/17 15:30 94 11/23/17 15:10 86 11/23/17 15:05 84 11/23/17 15:00 82 105/67 (80) 11/23/17 15:00 17 11/23/17 15:00 87 11/23/17 14:55 82 11/23/17 14:50 88 11/23/17 14:45 88 11/23/17 14:45 88 109/73 (85) 11/23/17 14:18 18 11/23/17 14:15 89 116/61 (79) 11/23/17 14:15 17 11/23/17 14:10 88 11/23/17 14:05 94 11/23/17 14:00 88 126/82 (97) 11/23/17 14:00 17 11/23/17 14:00 92 11/23/17 13:55 92 11/23/17 13:50 96 11/23/17 13:45 93 11/23/17 13:45 133/84 (100) 11/23/17 13:24 18 11/23/17 13:20 92 11/23/17 13:15 87 132/74 (93) 11/23/17 13:15 86 11/23/17 13:00 18 11/23/17 12:45 124/87 (99) 11/23/17 12:45 97 11/23/17 12:45 17 11/23/17 12:40 88 11/23/17 12:35 96 11/23/17 12:30 91 136/73 (94) 11/23/17 12:11 98.3 11/23/17 12:10 92 18 11/23/17 12:05 94 11/23/17 12:00 106 114/74 (87) 11/23/17 11:35 92 11/23/17 11:35 107 130/74 (92) 11/23/17 11:35 17 11/23/17 11:30 96 11/23/17 11:30 99 126/77 (93) 11/23/17 11:25 103 11/23/17 11:25 137/80 (99) 11/23/17 11:20 97 11/23/17 11:20 151/85 (107) 11/23/17 11:17 111 142/75 (97) 11/23/17 11:15 114 11/23/17 11:15 145/99 (114) 11/23/17 11:15 22 11/23/17 11:10 109 150/99 (116) 11/23/17 11:10 109 11/23/17 11:07 104 144/83 (103) 11/23/17 11:05 109 11/23/17 11:01 93 128/88 (101) 11/23/17 11:00 96 11/23/17 10:55 97 11/23/17 10:54 100 125/83 (97) 11/23/17 10:50 102 11/23/17 10:45 20 11/23/17 10:45 115 11/23/17 10:45 102 160/88 (112) 11/23/17 10:35 87 11/23/17 10:30 98 11/23/17 10:30 122/66 (84) 11/23/17 10:25 93 11/23/17 10:20 89 11/23/17 10:15 84 11/23/17 10:15 90 103/62 (76) 11/23/17 10:15 19 11/23/17 10:10 88 11/23/17 10:05 96 11/23/17 10:00 90 104/61 (75) 11/23/17 09:50 91 11/23/17 09:45 92 11/23/17 09:45 18 11/23/17 09:40 98 11/23/17 09:40 130/79 (96) 11/23/17 09:35 135/76 (95) 11/23/17 09:35 105 11/23/17 09:30 98 11/23/17 09:30 19 11/23/17 09:30 123/78 (93) 11/23/17 09:25 98 126/83 (97) 11/23/17 09:20 96 130/80 (97) 11/23/17 09:15 94 122/81 (95) 11/23/17 09:10 93 125/77 (93) 11/23/17 09:10 91 11/23/17 09:05 96 11/23/17 09:05 95 129/80 (96) 11/23/17 09:00 95 126/78 (94) 11/23/17 09:00 96 11/23/17 08:55 96 18 11/23/17 08:55 139/85 (103) 11/23/17 08:50 100 131/76 (94) 11/23/17 08:45 96 133/75 (94) 11/23/17 08:40 95 134/86 (102) 11/23/17 08:40 95 11/23/17 08:38 17 11/23/17 08:36 100 123/68 (86) 11/23/17 08:35 92 11/23/17 08:30 98 118/74 (89) 11/23/17 08:26 99 20 127/63 (84) 11/23/17 08:25 92 Objective Remarks GENERAL: Well-nourished, well-developed patient. CARDIOVASCULAR: Regular rate and rhythm without murmurs, gallops, or rubs. RESPIRATORY: Breath sounds equal bilaterally. No accessory muscle use. ABDOMEN/GI: Abdomen soft, non-tender. Fundus: Firm, non-tender at umbilicus. GENITOURINARY: Light to moderate bleeding. EXTREMITIES: No cyanosis or edema, non-tender, without signs of DVT. Medications and IVs Current Medications Medications (Trade) Dose Ordered Sig/Marty Route Start Time Stop Time Status Last Admin (Bicitra Liq) 30 ml FIELD BROOMER PO 11/22/17 23:30 11/25/17 23:29 Oxytocin 500 ml @ 0 mls/hr TITRATE PRN IV 11/23/17 09:00 11/23/17 14:28 (NS Flush) 2 ml BID IV FLUSH 11/23/17 21:00 (NS Flush) 2 ml UNSCH PRN IV FLUSH 11/23/17 19:45 (Tylenol) 650 mg Q4H PRN PO 11/23/17 19:45 (Motrin) 800 mg Q8H PRN PO 11/23/17 19:45 11/23/17 22:47 (Americaine 20% Top Spr) 1 spray Q4H PRN TOPICAL 11/23/17 19:45 11/23/17 22:46 (Tucks Pads) 1 applic QID PRN TOPICAL 11/23/17 19:45 11/23/17 22:46 (Melody-Colace) 2 tab Q12H PRN PO 11/23/17 19:45 11/23/17 22:46 (Ambien) 5 mg HS PRN PO 11/23/17 19:45 (Mag-Al Plus Susp Liq) 15 ml Q8H PRN PO 11/23/17 19:45 (Zofran Odt) 4 mg Q6H PRN PO 11/23/17 19:45 (Trandate) 100 mg Q12HR PO 11/24/17 08:00 Assessment/Plan Assessment and Plan 32 yo female s/p , PPD 1 - AFVSS - Continue routine care - Motrin PRN pain - Encourage OOB - Pelvic rest x 6 wks. - Contraception: Undecided - Anticipate D/C tomorrow Desiree Mathis Dr., MD R1 November 24, 2017 08:23
[2017-11-24] MEDS: LABETALOL HCL 100 MG TAB PO SCH ×3 (09:00→21:00)
[2017-11-24] MEDS: IBUPROFEN 800 MG TAB PO PRN (09:31)
[2017-11-24] MEDS ORDERED: KETOROLAC TROMETHAMINE 60 MG/2 ML (IM) VIAL IM ONE (18:00)
[2017-11-24] MEDS: KETOROLAC TROMETHAMINE 30 MG/ML (IVP) VIAL IV PUSH PRN ×2 (18:25→22:09)
[2017-11-24 20:54] VITALS: BP 106/62; PULSE 85; RESP 18; TEMP 97.8
[2017-11-24] MEDS: DOCUSATE SODIUM 50 MG/SENNA 8.6 MG TAB PO PRN (22:10)
[2017-11-24] MEDS: SODIUM CHLORIDE 0.9% FLUSH 10 ML FLUSH IV FLUSH PRN (22:10)
[2017-11-25] MEDS: SODIUM CHLORIDE 0.9% FLUSH 10 ML FLUSH IV FLUSH PRN (05:47)
[2017-11-25] MEDS: KETOROLAC TROMETHAMINE 30 MG/ML (IVP) VIAL IV PUSH PRN ×2 (05:47→11:49)
[2017-11-25] MEDS ORDERED: IBUP1TAB7 PO (08:03)
--- NOTE | 2017-11-25 08:03 | HHI.DCPOC ---
Discharge Care Plan Diagnosis: (1) Normal vaginal delivery (2) HTN (hypertension) Report Symptoms to Your Doctor -Temperature above 100.5 degrees -Redness, of incision or excessive or foul smelling drainage -Unusual pain or calf pain -Increased vaginal bleeding -Painful or difficulty urinating -Feelings of extreme sadness or anxiety after 2 weeks Goals to Promote Your Health * To prevent worsening of your condition and complications * To maintain your health at the optimal level Directions to Meet Your Goals Take your medications as prescribed Follow your dietary instruction Follow activity as directed Ensure plenty of rest for recovery Drink fluids for hydration Keep your appointments as scheduled Take your immunizations and boosters as scheduled If your symptoms worsen call your PCP, if no PCP go to Urgent Care Center or Emergency Room Smoking is Dangerous to Your Health. Avoid second hand smoke Call the 24-hour crisis hotline for domestic abuse at Desiree Kwok MD R1 November 25, 2017 08:03
--- NOTE | 2017-11-25 08:07 | HHI.OB ---
Subjective Remarks 32 year old female s/p at 40 wks gestation, PPD1. AFVSS. Patient reports she is feeling well. Bleeding is decreasing and pain is well- controlled. She is breast feeding and bonding well with baby. Ambulating without difficulties. She is tolerating a diet without nausea or vomiting. She has not had a bowel movement. She has passed gas. Denies chest pain, dysuria, shortness of breath, or calf pain. Objective Vitals/I&O Vital Signs Date Time Temp Pulse Resp B/P (MAP) Pulse Ox O2 Delivery O2 Flow Rate FiO2 11/24/17 20:54 97.8 85 18 106/62 (77) Objective Remarks GENERAL: Well-nourished, well-developed patient. CARDIOVASCULAR: Regular rate and rhythm without murmurs, gallops, or rubs. RESPIRATORY: Breath sounds equal bilaterally. No accessory muscle use. ABDOMEN/GI: Abdomen soft, non-tender. Fundus: Firm, non-tender at umbilicus. GENITOURINARY: Light to moderate bleeding. EXTREMITIES: No cyanosis or edema, non-tender, without signs of DVT. Medications and IVs Current Medications Medications (Trade) Dose Ordered Sig/Marty Route Start Time Stop Time Status Last Admin (Bicitra Liq) 30 ml HYDROELECTRIC POWERPLANT SUPERVISOR PO 11/22/17 23:30 11/25/17 23:29 Oxytocin 500 ml @ 0 mls/hr TITRATE PRN IV 11/23/17 09:00 11/23/17 14:28 (NS Flush) 2 ml BID IV FLUSH 11/23/17 21:00 (NS Flush) 2 ml UNSCH PRN IV FLUSH 11/23/17 19:45 11/25/17 05:47 (Tylenol) 650 mg Q4H PRN PO 11/23/17 19:45 11/24/17 10:34 (Motrin) 800 mg Q8H PRN PO 11/23/17 19:45 11/24/17 09:31 (Americaine 20% Top Spr) 1 spray Q4H PRN TOPICAL 11/23/17 19:45 11/23/17 22:46 (Tucks Pads) 1 applic QID PRN TOPICAL 11/23/17 19:45 11/23/17 22:46 (Melody-Colace) 2 tab Q12H PRN PO 11/23/17 19:45 11/24/17 22:10 (Ambien) 5 mg HS PRN PO 11/23/17 19:45 (Mag-Al Plus Susp Liq) 15 ml Q8H PRN PO 11/23/17 19:45 (Zofran Odt) 4 mg Q6H PRN PO 11/23/17 19:45 (Trandate) 100 mg Q12HR PO 11/24/17 08:00 11/24/17 09:31 (Toradol Inj) 30 mg Q6H PRN IV PUSH 11/24/17 17:30 11/28/17 17:29 11/25/17 05:47 Assessment/Plan Assessment and Plan 32 yo female s/p , PPD 2 - AFVSS - Continue routine care - Motrin PRN pain - Encourage OOB - Pelvic rest x 6 wks. - Contraception: Undecided, will discuss with OB provider at 6 week checkup - Anticipate D/C today Desiree Kirkpatrick Dr., MD R1 November 25, 2017 08:07
[2017-11-25] MEDS: LABETALOL HCL 100 MG TAB PO SCH (08:39)
== END 2017-11-25 14:22 | disposition home or self-care (01) | DRG 774 ==
LOC: H2EA 18:01 → H1EA 11-23 21:35
PROVIDERS: ADMIT Obstetrics & Gynecology; ATTEND Obstetrics & Gynecology
PROC: 3E0P7VZ Introduction of Hormone into Female Reproductive, Via Natural or Artificial Opening (ICD-10-PCS; 2017-11-22)
PROC: 10E0XZZ Delivery of Products of Conception, External Approach (ICD-10-PCS; principal; 2017-11-23)
PROC: 10907ZC Drainage of Amniotic Fluid, Therapeutic from Products of Conception, Via Natural or Artificial Opening (ICD-10-PCS; 2017-11-23)
PROC: 10H07YZ Insertion of Other Device into Products of Conception, Via Natural or Artificial Opening (ICD-10-PCS; 2017-11-23)
DX: O10.02 Pre-existing essential hypertension complicating childbirth (principal); O99.12 Other diseases of the blood and blood-forming organs and certain disorders involving the immune mechanism complicating childbirth; D47.3 Essential (hemorrhagic) thrombocythemia; O69.2XX0 Labor and delivery complicated by other cord entanglement, with compression, not applicable or unspecified; Z3A.40 40 weeks gestation of pregnancy; Z37.0 Single live birth
CPT/HCPCS: 59025; 80053; 80307; 81001; 85007; 85027; 86900; 86901; 87081; 87150; 90715; G0481; J1885; J2590; J3010; J3105; J7120